=== PATIENT | female | born 1970 | race Caucasian/White ===

== ENCOUNTER 2017-05-13 20:52 | Inpatient (IN) | payer BC, MEDICAID ==
[~2017-05-13] VITALS: Ht 157.5 cm; Wt 50.0 kg
[2017-05-13 21:00] VITALS: BP 126/74; PULSE 130; RESP 24; TEMP 98.9; O2SAT 98
[2017-05-13] MEDS ORDERED: LORazepam 2 MG/ML VIAL ONE (21:09)
[2017-05-13] MEDS ORDERED: SODIUM CHLOR 0.9% 1000 ML INJ 1,000 ML IV ONE ×2 (21:15→22:15)
[2017-05-13] MEDS ORDERED: LORazepam 2 MG/ML VIAL IV PUSH ONE ×2 (21:15→22:15)
--- NOTE | 2017-05-13 21:25 | PD ---
HPI Chief Complaint: Altered mental status Time Seen by Provider: 21:05 Travel History International Travel<30 days: No Contact w/Intl Traveler<30days: No History of Present Illness HPI The patient is a reportedly 46 year old female who presents to the [facility] emergency department with a history of altered mentation that began earlier today. The patient was noted by the patient's parents at home to be acting erratically, thrashing around on the floor. The patient was placed under a Walton act prior to arrival as she was unable to consent to care and was considered to be a harm to herself. According to the ambulance services record the patient has a history of lupus, Lyme disease, posttraumatic stress disorder , chronic pain. The patient reportedly is also on fentanyl for pain, Klonopin, and Valium. The patient on arrival is agitated and is requiring restraints for her and the staff safety. The patient intermittently is cursing and showing her middle finger. When asked questions, the patient provides no answers to the questions and when asked her name she said again "you", and put up her middle finger to me. No additional history was able to be obtained from the patient due to her altered mentation. The patient is brought in and registered as a [place], however the patient at one point was able to state her name to the nursing staff. FORMERLY [facility], [facility] Past Medical History Narrative Medical The patient's past medical history is significant for systemic lupus erythematosus, history of Lyme disease, posttraumatic stress disorder, chronic pain. Past Surgical History Narrative Surgical The patient's past surgical history is unable to be obtained. Social History Narrative Social History The patient's social history at this time is unable to be obtained. Tobacco Use: No Allergies-Medications (Allergen,Severity, Reaction): Coded Allergies: No Known Allergies (Unverified , 05/13/17) Reported Meds & Prescriptions Reported Meds & Active Scripts Active Narrative Medication Fentanyl, Klonopin, Valium. Review of Systems ROS Limitations: Altered Mental Status, Refused Except as stated in HPI: all other systems reviewed are Neg Neurologic: Positive: Change in Mentation Physical Exam Narrative General: The patient is a well-developed well-nourished female, agitated on arrival, diaphoretic, moving all extremities with equal strength. Head and Neck exam: Head is normocephalic atraumatic. Eyes: The patient is uncooperative with extraocular motion testing, however her eyes are conjugate gaze and are darting around the room looking at the staff. The patient's pupils are 4 mm bilaterally and reactive to light. Nose: Midline septum with pink mucous membranes Mouth: Dentition unremarkable. Moist mucus membranes. Posterior oropharynx is not erythematous. No tonsillar hypertrophy. Uvula midline. Airway patent. Neck: No palpable lymphadenopathy. No nuchal rigidity. No thyromegaly. Cardiovascular: Sinus tachycardia in the 130 without murmurs, gallops, or rubs. No pulse deficit to the extremities on simultaneous auscultation and palpation of her radial artery. Lungs: Clear to auscultation bilaterally. No wheezes, rhonchi, or rales. Abdomen: Soft, without tenderness to palpation in all 4 quadrants of the abdomen. No guarding, rebound, or rigidity. Normal bowel sounds are audible. No tenderness on palpation of McBurney's point. Extremities: No clubbing, cyanosis, or edema. 2+ pulses in all 4 extremities. Back: No spinous process tenderness to palpation. No costovertebral angle tenderness to palpation. Neurologic Exam: Patient is uncooperative with formal neurologic testing, however she has no evidence of facial asymmetry and is moving all 4 extremities with 5/5 strength. The patient has intact sensation noted to palpation over all dermatomes Skin Exam: She has bruises in various stages of healing on her extremities. The patient is diaphoretic. The patient's skin is warm. Data Data Last Documented VS Vital Signs Date Time Temp Pulse Resp B/P (MAP) Pulse Ox O2 Delivery O2 Flow Rate FiO2 05/13/17 21:00 24 98 Room Air 05/13/17 21:00 130 05/13/17 21:00 98.9 126/74 (91) Orders Orders Lorazepam Inj (Ativan Inj) (05/13/17 21:09) Complete Blood Count With Diff (05/13/17 21:14) Comprehensive Metabolic Panel (05/13/17 21:14) Creatine Kinase (Cpk) (05/13/17 21:14) Ckmb (Isoenzyme) Profile (05/13/17 21:14) Troponin I (05/13/17 21:14) Prothrombin Time / Inr (Pt) (05/13/17 21:14) Act Partial Throm Time (Ptt) (05/13/17 21:14) Lipase (05/13/17 21:14) Urinalysis - C+S If Indicated (05/13/17 21:14) Magnesium (Mg) (05/13/17 21:14) Ammonia (05/13/17 21:14) Thyroid Stimulating Hormone (05/13/17 21:14) Chest, Single Ap (05/13/17 21:14) Ct Brain W/O Iv Contrast(Rout) (05/13/17 21:14) Iv Access Insert/Monitor (05/13/17 21:14) Ecg Monitoring (05/13/17 21:14) Oximetry (05/13/17 21:14) Urinary Catheter Insert/Apply (05/13/17 21:14) Ed Urine Pregnancytest Poc (05/13/17 21:14) Drug Screen, Random Urine (05/13/17 21:14) Alcohol (Ethanol) (05/13/17 21:14) Salicylates (Aspirin) (05/13/17 21:14) Tylenol (Acetaminophen) (05/13/17 21:14) Sodium Chlor 0.9% 1000 Ml Inj (Ns 1000 M (05/13/17 21:15) Lorazepam Inj (Ativan Inj) (05/13/17 21:15) Sodium Chlor 0.9% 1000 Ml Inj (Ns 1000 M (05/13/17 22:15) Lorazepam Inj (Ativan Inj) (05/13/17 22:15) Haloperidol Inj (Haldol Inj) (05/13/17 22:15) Diphenhydramine Inj (Benadryl Inj) (05/13/17 22:15) CKMB (05/13/17 21:15) CKMB% (05/13/17 21:15) Admit Order (Ed Use Only) (05/13/17 23:53) Sodium Chlorid 0.9% 500 Ml Inj (Ns 500 M (05/14/17 00:00) Lactulose Liq (Lactulose Liq) (05/14/17 00:00) Labs Laboratory Tests Test 05/13/17 21:15 White Blood Count 20.8 TH/MM3 Red Blood Count 3.69 MIL/MM3 Hemoglobin 11.7 GM/DL Hematocrit 35.5 % Mean Corpuscular Volume 96.0 FL Mean Corpuscular Hemoglobin 31.6 PG Mean Corpuscular Hemoglobin Concent 32.9 % Red Cell Distribution Width 13.0 % Platelet Count 267 TH/MM3 Mean Platelet Volume 10.8 FL Neutrophils (%) (Auto) 80.1 % Lymphocytes (%) (Auto) 11.2 % Monocytes (%) (Auto) 8.5 % Eosinophils (%) (Auto) 0.0 % Basophils (%) (Auto) 0.2 % Neutrophils # (Auto) 16.7 TH/MM3 Lymphocytes # (Auto) 2.3 TH/MM3 Monocytes # (Auto) 1.8 TH/MM3 Eosinophils # (Auto) 0.0 TH/MM3 Basophils # (Auto) 0.0 TH/MM3 CBC Comment DIFF FINAL Differential Comment Prothrombin Time 11.7 SEC Prothromb Time International Ratio 1.2 RATIO Activated Partial Thromboplast Time 22.1 SEC Urine Color YELLOW Urine Turbidity HAZY Urine pH 6.0 Urine Specific [place] 1.031 Urine Protein 30 mg/dL Urine Glucose (UA) NEG mg/dL Urine Ketones 80 mg/dL Urine Occult Blood NEG Urine Nitrite NEG Urine Bilirubin NEG Urine Urobilinogen 2.0 MG/DL Urine Leukocyte Esterase NEG Urine RBC 3 /hpf Urine WBC 2 /hpf Urine Squamous Epithelial Cells 2 /hpf Urine Bacteria FEW /hpf Urine Hyaline Casts 1 /lpf Urine Mucus FEW /lpf Microscopic Urinalysis Comment CULT NOT INDICATED Blood Urea Nitrogen 13 MG/DL Creatinine 1.12 MG/DL Random Glucose 85 MG/DL Total Protein 7.4 GM/DL Albumin 4.4 GM/DL Calcium Level 9.6 MG/DL Magnesium Level 1.6 MG/DL Alkaline Phosphatase 61 U/L Aspartate Amino Transf (AST/SGOT) 55 U/L Alanine Aminotransferase (ALT/SGPT) 35 U/L Total Bilirubin 0.6 MG/DL Sodium Level 144 MEQ/L Potassium Level 3.4 MEQ/L Chloride Level 108 MEQ/L Carbon Dioxide Level 20.0 MEQ/L Anion Gap 16 MEQ/L Estimat Glomerular Filtration Rate 42 ML/MIN Ammonia 125 MCMOL/L Total Creatine Kinase 1135 U/L Creatine Kinase MB 19.2 NG/ML Creatine Kinase MB % 1.7 % Troponin I 0.03 NG/ML Lipase 72 U/L Free Thyroxine 1.09 NG/DL Free Triiodothyronine (T3) pg/dL 2.47 PG/ML Thyroid Stimulating Hormone 3rd Gen 0.215 uIU/ML Salicylates Level 1.9 MG/DL Urine Opiates Screen NEG Acetaminophen Level LESS THAN 2.0 MCG/ML Urine Barbiturates Screen POS Urine Amphetamines Screen NEG Urine Benzodiazepines Screen POS Urine Cocaine Screen NEG Urine Cannabinoids Screen POS Ethyl Alcohol Level LESS THAN 3 MG/DL MDM Medical Decision Making Medical Screen Exam Complete: Yes Emergency Medical Condition: Yes Medical Record Reviewed: Yes Interpretation(s) Last Impressions Head CT 05/13/172113 Signed Impressions: Service Date/Time: Sunday, May 14, 2017 00:01 - CONCLUSION: 1. No acute intracranial abnormality. Deandre Markham MD Chest X-Ray 05/13/172113 Signed Impressions: Service Date/Time: Saturday, May 13, 2017 21:38 - CONCLUSION: No acute disease. Brad Ernandez MD Differential Diagnosis Sympathomimetic toxicity, versus withdrawal syndrome, versus intracranial abnormality, versus anticholinergic syndrome. Narrative Course During the course of the patient's emergency department visit, the patient's history, examination, and differential diagnosis were reviewed with the patient. The patient was placed on a night monitor with oximetry and frequent blood pressure monitoring. The patient had IV access obtained and blood work sent for analysis. The patient was placed in restraints for her and the staff safety. A chest x-ray has been ordered, CT scan of the brain has been ordered. The patient's Walton act was reviewed. The patient was initially provided normal saline 1 L IV fluid bolus, Ativan 2 mg IV. The patient became agitated again and required additional Ativan 1 mg IV , Haldol 5 mg IM, diphenhydramine 25 mg IV. The patient was started on a second liter of normal saline IV fluids. A Hendricks catheter was placed to gravity. The patient's laboratory studies were reviewed and remarkable for a white count of 20.8, hemoglobin 11.7, platelets 267 with 80.1 neutrophils, CMP is remarkable for a potassium of 3.4, chloride 108, CO2 20, anion gap 16, creatinine is 1.12, GFR 42, AST 55, ammonia level 125, CPK 1135 with a normal MB percent, troponin I 0.03, lipase 72, TSH 0.215, PT 11.7, PTT 22.1, urine drug screen is positive for habitual its, benzodiazepines, cannabinoids. Alcohol level less than 3, acetaminophen less than 2, salicylate 1.9. Urinalysis showed 80 ketones otherwise unremarkable. Radiology studies were reviewed and remarkable for a chest x-ray that showed no acute cardiopulmonary disease, CT scan of the brain showed no acute abnormality. The patient was given her initial dose of lactulose p.o. The patient's results were discussed with the patient, including the plan of care. I explained that further testing and/ or monitoring is indicated based on the patient's history, examination, and/ or laboratory findings. Therefore, I recommended admission for additional evaluation. The patient expressed understanding and was agreeable with this plan. The patient was admitted to the hospital in guarded condition and sent to a bed under the care of the [facility] service. Critical Care Narrative Aggregate critical care time was 36 minutes. Time to perform other separately billable procedures was not included in the critical care time. My time did not include minutes spent treating any other patients simultaneously or on activities that did not directly contribute to the patient's treatment. The services I provided to this patient were to treat and/or prevent clinically significant deterioration that could result in: Respiratory failure from sedation, versus progression of rhabdomyolysis from agitation I provided critical care services requiring my management, as noted below: Chart data review, documentation time, medication orders and management, vital sign assessments/reviewing monitor data, ordering and reviewing lab tests, ordering and interpreting/reviewing x-rays and diagnostic studies, care of the patient and discussion of the patient with the admitting physicians. Physician Communication Physician Communication The patient's case including history, pertinent physical examination findings, and laboratory studies were discussed with Dr. Castellanos. It was agreed that the patient would be admitted to the [facility] service. Diagnosis Primary Impression: Altered mental status Qualified Codes: R41.0 - Disorientation, unspecified Additional Impressions: Hepatic encephalopathy Hyperthyroidism Admitting Information Admitting Physician Requests: Admit Scripts [Lactulose Liq] 30 ML SYRP No Conflict Check 30 ML PO QID for elevated ammonia, #1 BOTTLE Prov: MedardoLuciusgueroKaelyncoral BROWN 05/14/17 Virginie Saleh MD May 13, 2017 21:25
[2017-05-13 21:42] LABS: AUTOMATED NEUTROPHIL # 16.7 TH/MM3 (1.8-7.7); BASOPHIL % 0.2 % (0.0-2.0); HEMATOCRIT 35.5 % (35.0-46.0); HEMOGLOBIN 11.7 GM/DL (11.6-15.3); LYMPH % 11.2 % (9.0-44.0); LYMPHOCYTE # 2.3 TH/MM3 (1.0-4.8); MEAN CORPUSCULAR HEMOGLOBIN 31.6 PG (27.0-34.0); MEAN CORPUSCULAR HGB CONC 32.9 % (32.0-36.0); MEAN PLATELET VOLUME 10.8 FL (7.0-11.0); MONO % 8.5 % (0.0-8.0); MONOCYTE # 1.8 TH/MM3 (0-0.9); NEUT % 80.1 % (16.0-70.0); PLATELET COUNT 267 TH/MM3 (150-450); RED BLOOD COUNT 3.69 MIL/MM3 (4.00-5.30); WHITE BLOOD COUNT 20.8 TH/MM3 (4.0-11.0)
[2017-05-13 21:52] LABS: INTERNATIONAL NORMALIZED RATIO 1.2 RATIO; PROTHROMBIN TIME - PATIENT 11.7 SEC (9.8-11.6)
[2017-05-13 21:59] LABS: ALBUMIN 4.4 GM/DL (3.4-5.0); AST (GOT) 55 U/L (15-37); BACTERIA, URINE FEW /hpf; BILIRUBIN, URINE NEG (NEG); BLOOD UREA NITROGEN 13 MG/DL (7-18); BLOOD, URINE NEG (NEG); CALCIUM 9.6 MG/DL (8.5-10.1); CHLORIDE 108 MEQ/L (98-107); CREATININE 1.12 MG/DL (0.50-1.00); GLOMERULAR FILTRATION RATE 42 ML/MIN (>89); GLUCOSE,RANDOM 85 MG/DL (74-106); GLUCOSE,URINE NEG (NEG); HYALINE CAST, URINE 1 /lpf (RARE); KETONE, URINE 80 mg/dL (NEG); MAGNESIUM 1.6 MG/DL (1.5-2.5); MUCUS URINE FEW /lpf (OCC); NITRITE,URINE NEG (NEG); SODIUM (NA) 144 MEQ/L (136-145); SQUAMOUS EPITHELIAL CELL URINE 2 /hpf (0-5); URINE COLOR YELLOW (YELLW/STRAW); URINE LEUKOCYTE ESTERASE NEG (NEG)
[2017-05-13 22:15] LABS: ACETAMINOPHEN LESS THAN 2.0 MCG/ML (10.0-30.0); ALKALINE PHOSPHATASE 61 U/L (45-117); ALT (GPT) 35 U/L (10-53); TOTAL BILIRUBIN ADULT 0.6 MG/DL (0.2-1.0); TOTAL PROTEIN 7.4 GM/DL (6.4-8.2); TROPONIN I 0.03 NG/ML (0.02-0.05)
[2017-05-13] MEDS ORDERED: HALOPERIDOL LACTATE 5 MG/ML AMP IM ONE (22:15)
[2017-05-13] MEDS ORDERED: diphenhydrAMINE HCL 50 MG/ML VIAL IV PUSH ONE (22:15)
--- NOTE | 2017-05-13 22:17 | RADRPT ---
EXAM DATE/TIME: 05/13/2017 21:38 [facility] COMPARISON: No previous studies available for comparison. INDICATIONS : Patient arrived altered mental status. MEDICAL HISTORY : None. SURGICAL HISTORY : None. ENCOUNTER: Initial ACUITY: 1 day PAIN SCORE: 0/10 LOCATION: upper chest FINDINGS: A single view of the chest demonstrates the lungs to be symmetrically aerated without evidence of mas s, infiltrate or effusion. The cardiomediastinal contours are unremarkable. Osseous structures are intact. CONCLUSION: No acute disease. Brad Ernandez MD on May 13, 2017 at 22:16 Board Certified Radiologist. This report was verified electronically.
[2017-05-14] MEDS ORDERED: LACTULOSE SYRUP 20 GM/30 ML CUP PO ONE
[2017-05-14] MEDS ORDERED: SODIUM CHLORID 0.9% 500 ML INJ 500 ML IV ONE
--- NOTE | 2017-05-14 00:27 | RADRPT ---
EXAM DATE/TIME: 05/14/2017 00:01 [facility] COMPARISON: No previous studies available for comparison. INDICATIONS : Altered mental status. RADIATION DOSE: 56.35 CTDIvol (mGy) MEDICAL HISTORY : Non-responsive. SURGICAL HISTORY : Non-responsive. ENCOUNTER: Initial ACUITY: 1 day PAIN SCALE: Non-responsive LOCATION: cranial TECHNIQUE: Multiple contiguous axial images were obtained of the head. Using automated exposure control and adj ustment of the mA and/or kV according to patient size, radiation dose was kept as low as reasonably a chievable to obtain optimal diagnostic quality images. DICOM format image data is available electro nically for review and comparison. FINDINGS: CEREBRUM: Mild diffuse cerebral volume loss. The ventricles are normal for age. No evidence of midline shift, mass lesion, hemorrhage or acute infarction. No extra-axial fluid collections are seen. POSTERIOR FOSSA: The cerebellum and brainstem are intact. The 4th ventricle is midline. The cerebellopontine angle i s unremarkable. EXTRACRANIAL: The visualized portion of the orbits is intact. SKULL: The calvaria is intact. No evidence of skull fracture. CONCLUSION: 1. No acute intracranial abnormality. Deandre Markham MD on May 14, 2017 at 0:25 Board Certified Radiologist. This report was verified electronically.
[2017-05-14] MEDS ORDERED: NALOXONE HCL 0.4 MG/ML AMP IV PUSH PRN (00:45)
[2017-05-14] MEDS ORDERED: MAGNESIUM HYDROXIDE SUSP 30 ML CUP PO PRN (00:45)
[2017-05-14] MEDS ORDERED: HALOPERIDOL LACTATE 5 MG/ML AMP IM PRN (00:45)
[2017-05-14] MEDS ORDERED: LORazepam 2 MG/ML VIAL IV PUSH PRN ×4 (00:45)
[2017-05-14] MEDS ORDERED: SENNOSIDES 8.6 MG TAB PO PRN (00:45)
[2017-05-14] MEDS ORDERED: LORazepam 1 MG TAB PO PRN (00:45)
[2017-05-14] MEDS ORDERED: BISACODYL 10 MG SUPP RECTAL PRN (00:45)
[2017-05-14] MEDS ORDERED: LACTULOSE SYRUP 20 GM/30 ML CUP PO PRN (00:45)
[2017-05-14] MEDS ORDERED: LORazepam 2 MG TAB PO PRN (00:45)
[2017-05-14] MEDS ORDERED: FLUMAZENIL 0.5 MG/5 ML VIAL IV PUSH PRN (00:45)
[2017-05-14] MEDS ORDERED: SODIUM CHLORIDE 0.9% FLUSH 10 ML FLUSH IV FLUSH PRN (00:45)
[2017-05-14] MEDS ORDERED: ONDANSETRON HCL 4 MG/2 ML VIAL IVP PRN (00:45)
[2017-05-14 01:00] VITALS: BP 114/71; PULSE 95; RESP 14; O2SAT 97
[2017-05-14] MEDS: SODIUM CHLOR 0.9% 1000 ML INJ 1,000 ML IV SCH ×2 (01:38→08:34)
[2017-05-14] MEDS ORDERED: POTASSIUM CHLORIDE 20 MEQ PWD PACKET PO ONE (02:00)
--- NOTE | 2017-05-14 02:01 | HHI.HP ---
[facility] Diagnosis Dehydration, Rhabdomyolysis, AMS, hepatic encephalopathy Diagnoses: Travel History International Travel<30 Days: No Contact w/Intl Traveler <30 Da: No Traveled to Known Affected Are: No History of Present Illness Female of unknown age brought to the emergency department for altered mental status. Per ED documentation, the patient was noted by her parents to be acting erratically and thrashing about on the floor. She was placed under a Walton act and brought to the emergency department for further evaluation. According to EMS the patient has a history of lupus, Lyme disease, PTSD and chronic pain. The patient is reportedly on fentanyl, Klonopin and Valium. In the emergency department, the patient was agitated and required sedation with Ativan and Haldol. During the time of our interview, the patient will open her eyes to voice however does not answer any questions. Does not follow commands. Review of Systems ROS Limitations: Clinical Condition Unable to obtain secondary clinical condition Past Family Social History Past Medical History Per EMS records: lupus, Lyme disease, PTSD and chronic pain Past Surgical History Unable to obtain Reported Medications Unable to obtain Allergies: Coded Allergies: No Known Allergies (Unverified , 05/13/17) Family History Unable to obtain Social History Unable to obtain Physical Exam Vital Signs Vital Signs Date Time Temp Pulse Resp B/P (MAP) Pulse Ox O2 Delivery O2 Flow Rate FiO2 05/13/17 21:00 24 98 Room Air 05/13/17 21:00 130 24 98 Room Air 05/13/17 21:00 98.9 130 24 126/74 (65) 98 Physical Exam GENERAL: female lying in bed SKIN: No rashes, ecchymoses or lesions. Cool and dry. HEAD: Atraumatic. Normocephalic. No temporal or scalp tenderness. EYES: Pupils pinpoint and sluggish but reactive. Extraocular motions intact. No scleral icterus. No injection or drainage. ENT: Nose without bleeding, purulent drainage or septal hematoma. Airway patent. NECK: Trachea midline. No JVD or lymphadenopathy. CARDIOVASCULAR: Regular rate and rhythm without murmurs, gallops, or rubs. RESPIRATORY: Clear to auscultation. Breath sounds equal bilaterally. No wheezes , rales, or rhonchi. GASTROINTESTINAL: Abdomen soft, nondistended. No hepato-splenomegaly, or palpable masses. MUSCULOSKELETAL: Extremities without clubbing, cyanosis, or edema. No joint tenderness, effusion, or edema noted. NEUROLOGICAL: Opens eyes to voice. Does not follow commands. Unable to assess strength or mental status. Laboratory Laboratory Tests Test 05/13/17 21:15 White Blood Count 20.8 Red Blood Count 3.69 Hemoglobin 11.7 Hematocrit 35.5 Mean Corpuscular Volume 96.0 Mean Corpuscular Hemoglobin 31.6 Mean Corpuscular Hemoglobin Concent 32.9 Red Cell Distribution Width 13.0 Platelet Count 267 Mean Platelet Volume 10.8 Neutrophils (%) (Auto) 80.1 Lymphocytes (%) (Auto) 11.2 Monocytes (%) (Auto) 8.5 Eosinophils (%) (Auto) 0.0 Basophils (%) (Auto) 0.2 Neutrophils # (Auto) 16.7 Lymphocytes # (Auto) 2.3 Monocytes # (Auto) 1.8 Eosinophils # (Auto) 0.0 Basophils # (Auto) 0.0 CBC Comment DIFF FINAL Differential Comment Prothrombin Time 11.7 Prothromb Time International Ratio 1.2 Activated Partial Thromboplast Time 22.1 Urine Color YELLOW Urine Turbidity HAZY Urine pH 6.0 Urine Specific [place] 1.031 Urine Protein 30 Urine Glucose (UA) NEG Urine Ketones 80 Urine Occult Blood NEG Urine Nitrite NEG Urine Bilirubin NEG Urine Urobilinogen 2.0 Urine Leukocyte Esterase NEG Urine RBC 3 Urine WBC 2 Urine Squamous Epithelial Cells 2 Urine Bacteria FEW Urine Hyaline Casts 1 Urine Mucus FEW Microscopic Urinalysis Comment CULT NOT INDICATED Blood Urea Nitrogen 13 Creatinine 1.12 Random Glucose 85 Total Protein 7.4 Albumin 4.4 Calcium Level 9.6 Magnesium Level 1.6 Alkaline Phosphatase 61 Aspartate Amino Transf (AST/SGOT) 55 Alanine Aminotransferase (ALT/SGPT) 35 Total Bilirubin 0.6 Sodium Level 144 Potassium Level 3.4 Chloride Level 108 Carbon Dioxide Level 20.0 Anion Gap 16 Estimat Glomerular Filtration Rate 42 Ammonia 125 Total Creatine Kinase 1135 Creatine Kinase MB 19.2 Creatine Kinase MB % 1.7 Troponin I 0.03 Lipase 72 Thyroid Stimulating Hormone 3rd Gen 0.215 Salicylates Level 1.9 Urine Opiates Screen NEG Acetaminophen Level LESS THAN 2.0 Urine Barbiturates Screen POS Urine Amphetamines Screen NEG Urine Benzodiazepines Screen POS Urine Cocaine Screen NEG Urine Cannabinoids Screen POS Ethyl Alcohol Level LESS THAN 3 Result Diagram: 05/13/17211405/13/172114 [place] [facility]: No/Low Risk (score <= 1) [facility] Risk [facility] Model Point Value = 1 Point Value = 2 Point Value = 3 Point Value = 5 Age 41-60 Minor surgery BMI > 25 kg/m2 Swollen legs Varicose veins or History of unexplained or recurrent spontaneous Oral contraceptives or hormone replacement Sepsis (< 1 month) Serious lung disease, including pneumonia (< 1 month) Abnormal pulmonary function Acute myocardial infarction Congestive heart failure (< 1 month) History of inflammatory bowel disease Medical patient at bed rest Age 61-74 Arthroscopic surgery Major open surgery (> 45 min) Laparoscopic surgery (> 45 min) Malignancy Confined to bed (> 72 hours) Immobilizing plaster cast Central venous access Age >= 75 History of VTE Family history of VTE Factor V Leiden Prothrombin [id number] Lupus anticoagulant Anticardiolipin antibodies Elevated serum homocysteine Heparin-induced thrombocytopenia Other congenital or acquired thrombophilia Stroke (< 1 month) Elective arthroplasty Hip, pelvis, or leg fracture Acute spinal cord injury (< 1 month) Prophylaxis Regimen Total Risk Factor Score Risk Level Prophylaxis Regimen 0-1 Low Early ambulation 2 Moderate Order ONE of the following: *Sequential Compression Device (SCD) *Heparin 5000 units SQ BID 3-4 Higher Order ONE of the following medications: *Heparin 5000 units SQ TID *Enoxaparin/Lovenox 40 mg SQ daily (WT < 150 kg, CrCl > 30 mL/min) *Enoxaparin/Lovenox 30 mg SQ daily (WT < 150 kg, CrCl > 10-29 mL/min) *Enoxaparin/Lovenox 30 mg SQ BID (WT < 150 kg, CrCl > 30 mL/min) AND/OR *Sequential Compression Device (SCD) 5 or more Highest Order ONE of the following medications: *Heparin 5000 units SQ TID (Preferred with Epidurals) *Enoxaparin/Lovenox 40 mg SQ daily (WT < 150 kg, CrCl > 30 mL/min) *Enoxaparin/Lovenox 30 mg SQ daily (WT < 150 kg, CrCl > 10-29 mL/min) *Enoxaparin/Lovenox 30 mg SQ BID (WT < 150 kg, CrCl > 30 mL/min) AND *Sequential Compression Device (SCD) Assessment and Plan Assessment and Plan Assessment/plan: 1. Rhabdomyolysis CK 1135 Aggressive IV fluid hydration Monitor renal function 2. Hyperammonemia Ammonia 125 Lactulose Trend 3. Substance abuse Urine tox screen significant for barbiturates, benzodiazepines, cannabinoids [facility] protocol for benzo withdrawal 4. Altered mental status/Walton act Psychiatry consulted, appreciate recommendations 5. Hypothyroidism TSH 0.215 Thyroid studies pending FEN Regular diet Electrolytes: Status post by mouth potassium, follow up BMP Ambulation once mental status improves NS at 150 cc/hr Physician Certification 2 Midnight Certification Type: Admission for Inpatient Services Order for Inpatient Services The services are ordered in accordance with Medicare regulations or non- Medicare payer requirements, as applicable. In the case of services not specified as inpatient-only, they are appropriately provided as inpatient services in accordance with the 2-midnight benchmark. Estimated LOS (days): 2 2 days is the estimated time the patient will need to remain in the hospital, assuming treatment plan goals are met and no additional complications. Post-Hospital Plan: Not yet determined Stella Castellanos MD May 14, 2017 02:01
[2017-05-14 03:00] VITALS: BP 121/74; PULSE 87; RESP 15; O2SAT 98
[2017-05-14 03:24] LABS: FREE T3 2.47 PG/ML (2.18-3.98); FREE T4 1.09 NG/DL (0.76-1.46)
[2017-05-14] MEDS: LACTULOSE SYRUP 20 GM/30 ML CUP PO SCH ×2 (08:32→14:34)
[2017-05-14] MEDS ORDERED: DOCUSATE SODIUM 50 MG/SENNA 8.6 MG TAB PO SCH (09:00)
[2017-05-14] MEDS ORDERED: SODIUM CHLORIDE 0.9% FLUSH 10 ML FLUSH IV FLUSH SCH (09:00)
[2017-05-14 09:11] VITALS: BP 102/58; PULSE 98; RESP 18; TEMP 98.7; O2SAT 98
--- NOTE | 2017-05-14 10:22 | HHI.PR ---
Subjective Remarks Follow-up visit fibromyalgia, chronic pain, psychotic episode possibly drug- induced, encephalopathy. Patient seen and examined today sitting in bed. Appears to be very restless. States that she was to go to the bathroom but not immediately. Patient relates that she has chronic pain issues and fibromyalgia with history of multiple falls. States that she lives in [place] prior to moving to her mother here in the area. States that she is being followed by pain management for medical marijuana and tapering her dose of fentanyl. Patient states that she sees Dr. Jenkins who is a pain management and also Dr. Huang her primary care provider. Denies chest pain, palpitations, headaches, dizziness. Denies fevers, chills, nausea, vomiting, diarrhea. Requesting Hendricks removal. Objective Vitals Vital Signs Date Time Temp Pulse Resp B/P (MAP) Pulse Ox O2 Delivery O2 Flow Rate FiO2 05/14/17 09:11 Room Air 05/14/17 09:11 98.7 98 18 102/58 (73) 98 05/14/17 06:16 05/14/17 03:00 87 15 121/74 (90) 98 Room Air 05/14/17 01:00 95 14 114/71 (85) 97 Room Air 05/13/17 21:00 24 98 Room Air 05/13/17 21:00 130 24 98 Room Air 05/13/17 21:00 98.9 130 24 126/74 (91) 98 Result Diagram: 05/13/17211405/13/172114 Imaging Last Impressions Head CT 05/13/172113 Signed Impressions: Service Date/Time: Sunday, May 14, 2017 00:01 - CONCLUSION: 1. No acute intracranial abnormality. Deandre Markham MD Chest X-Ray 05/13/172113 Signed Impressions: Service Date/Time: Saturday, May 13, 2017 21:38 - CONCLUSION: No acute disease. Brad Ernandez MD Objective Remarks GENERAL: This is a well-nourished, well-developed patient, in no apparent distress. SKIN: Warm and dry. Multiple erythema and bruising all throughout bilateral upper and lower extremity. HEENT: Normocephalic. Pupils equal round and reactive. Nose without bleeding. Airway patent. NECK: Trachea midline. CARDIOVASCULAR: Regular rate and rhythm without murmurs, gallops, or rubs. RESPIRATORY: Clear to auscultation. Breath sounds equal bilaterally. No wheezes , rales, or rhonchi. GASTROINTESTINAL: Abdomen soft, non-tender, nondistended. Bowel Sounds normoactive x4. MUSCULOSKELETAL: Extremities without clubbing, cyanosis, or edema. NEUROLOGICAL: Awake and alert. Very restless. No focal neuro deficit. Moves all extremities. Normal speech. A/P Problem List: (1) Encephalopathy acute ICD Code: G93.40 - Encephalopathy, unspecified (2) Fibromyalgia ICD Code: M79.7 - Fibromyalgia (3) Chronic pain disorder ICD Code: G89.4 - Chronic pain syndrome Assessment and Plan Patient is a 50 [id number] female who came into the hospital for altered mental status. Substance abuse Drug-induced psychosis Encephalopathy, acute - Ammonia level 125 - Lactulose 4 times a day - Psychiatry consulted for further evaluation and recommendation. Spoke with Dr. Lind will admit the patient with medical psychiatric for further evaluation. - Patient with chronic pain on multiple narcotic medication- fentanyl, Valium , Klonopin and also reports medical marijuana use. U tox positive barbiturates , benzos, cannabinoids - Appears to be restless during examination and interview. Monitor for benzo withdrawals. CIWA protocol - Patient states she is trying to wean off fentanyl by being on medical marijuana. Multiple falls with bruising noted. Chronic pain, fibromyalgia Multiple falls - Chronic pain management as above, followed by Dr. Huang and Dr. Jenkins - We'll place on CIWA - Physical therapy and occupational therapy treatment and evaluation Rhabdomyolysis - CK 1135 - Aggressive fluid hydration - Follow-up labs DVT prop SCDs Discharge patient to medical psychiatry Condition on discharge: Improved Regular Diet as tolerated Ad July activity as tolerated, OOB-chair with assist Rx written: Lactulose QID. CIWA protocol with Ativan Follow-up with [facility] in med psych Discharge Planning DC to med psych Lobo Neves May 14, 2017 10:22
[2017-05-14 10:42] VITALS: BP 99/65; PULSE 98; RESP 18; TEMP 98.6; O2SAT 98
[2017-05-14] MEDS ORDERED: Lactulose Liq PO (11:41)
[2017-05-14 11:45] LABS: AUTOMATED NEUTROPHIL # 7.2 TH/MM3 (1.8-7.7); BASOPHIL % 0.2 % (0.0-2.0); HEMATOCRIT 30.3 % (35.0-46.0); HEMOGLOBIN 10.1 GM/DL (11.6-15.3); LYMPH % 15.5 % (9.0-44.0); LYMPHOCYTE # 1.4 TH/MM3 (1.0-4.8); MEAN CORPUSCULAR HGB CONC 33.3 % (32.0-36.0); MEAN PLATELET VOLUME 10.7 FL (7.0-11.0); MONO % 5.9 % (0.0-8.0); MONOCYTE # 0.5 TH/MM3 (0-0.9); NEUT % 78.4 % (16.0-70.0); PLATELET COUNT 166 TH/MM3 (150-450); RED BLOOD COUNT 3.15 MIL/MM3 (4.00-5.30); RED CELL DISTRIBUTION WIDTH 13.3 % (11.6-17.2); WHITE BLOOD COUNT 9.2 TH/MM3 (4.0-11.0)
[2017-05-14 12:05] LABS: ALBUMIN 3.3 GM/DL (3.4-5.0); ALKALINE PHOSPHATASE 44 U/L (45-117); ALT (GPT) 35 U/L (10-53); AST (GOT) 80 U/L (15-37); BICARBONATE 16.3 MEQ/L (21.0-32.0); BLOOD UREA NITROGEN 7 MG/DL (7-18); CALCIUM 7.6 MG/DL (8.5-10.1); CHLORIDE 113 MEQ/L (98-107); CREATININE 0.47 MG/DL (0.50-1.00); GLOMERULAR FILTRATION RATE 114 ML/MIN (>89); GLUCOSE,RANDOM 68 MG/DL (74-106); SODIUM (NA) 143 MEQ/L (136-145); TOTAL BILIRUBIN ADULT 0.5 MG/DL (0.2-1.0); TOTAL PROTEIN 5.6 GM/DL (6.4-8.2)
--- NOTE | 2017-05-14 12:53 | PD.PSY.CON ---
Provisional Diagnosis Admission Date May 13, 2017 at 23:55 [place] I. Unspecified psychosis, chronic PTSD [place] II. Deferred [place] III. Fibromyalgia, lupus, Mark's disease, [place] IV. Multiple chronic medical illnesses [place] V. 35 History of Present Illness Service Psychiatry Consult Requested By Medical team Reason for Consult Psychotic behavior Primary Care Physician HPI The patient is a 46 year-old woman, domiciled with her parents in [place], divorce, no kids, with psychiatric history of PTSD, no previous psychiatric hospitalizations, no previous suicidal attempts, medical history of Lyme disease , fibromyalgias, lupus, Mark's disease, migraine, who was brought to the emergency department for altered mental status. Per ED documentation, the patient was noted by her parents to be acting erratically and thrashing about on the floor. She was placed under a [place] act and brought to the emergency department for further evaluation. According to EMS the patient has a history of lupus, Lyme disease, PTSD and chronic pain. The patient is reportedly on fentanyl, Fioricet, Klonopin and Valium. In the emergency department, the patient was agitated and required sedation with Ativan and Haldol. During the time of our interview, the patient will open her eyes to voice however does not answer any questions. Does not follow commands. Had to be medicated with Haldol 5 mg in order to calm her down. On psychiatric evaluation today the patient is found sleeping, but easily arousable. Patient has a very expansive and elevated affect, reports that she has a lot of energy and she feels very happy. Patient says that she was brought here to the hospital "because I had an argument with her mother"but the patient is unable to elaborate about the circumstances and the cause of this argument. The patient says that she has been walking her dog back and forward in multiple locations in the last week. " I have been watching my dog, my dog is my best friend". The patient is very talkative, at times pressured and has to be redirected multiple times throughout the interview. Patient reports to feels full of energy, she says that she wants to go home because she has several activities to finish. Patient reported that she takes all her medications as prescribed. She says that she takes overtime medications, which is unable to remember the names at this moment. She says that she takes Klonopin, Valium and Fioricet scribe by her neurologist for migraine "Iand neurological conditions"patient doesn't remember the dose. She reports the use of prescribed marijuana, denies the use of other drugs and alcohol. Patient denies suicidal and homicidal ideation, she denies visual and auditory hallucinations. The evaluation the patient becomes tangential and disorganized multiple occasions, but she can be easily redirectable. Collateral information from her mother, Racquel Oakes, , who clarifies that she had to call the 911 yesterday because her daughter was presenting at very initial erratic and disorganized behavior. She says that at the beginning she was just confused, but at the end she was yelling, talking to herself, repeating herself over and over and over and she was not even able to recognize her mother. She says that this is the first time that her daughter has this kind of behavior. She says that the patient doesn't have any previous psychiatric problem. She has a lot of medical problems, she takes her medications as prescribed. She confirms that the patient doesn't use illegal drugs, she uses marijuana prescribed by her PCP. She is unable to clarify if the patient is abusing opiates or benzodiazepines, days that the patient takes clonazepam, Valium, Fioricet as prescribed. Review of Systems Constitutional: DENIES: Diaphoretic episodes, Fatigue, Fever, Weight gain, Weight loss, Chills, Dizziness, Change in appetite, Night Sweats Endocrine: DENIES: Abnorml menstrual pattern, Heat/cold intolerance, Polydipsia , Polyuria, Polyphagia Eyes: DENIES: Blurred vision, Diplopia, Eye inflammation, Eye pain, Vision loss , Photosensitivity, Double Vision Ears, nose, mouth, throat: DENIES: Tinnitus, Hearing loss, Vertigo, Nasal discharge, Oral lesions, Throat pain, Hoarseness, Ear Pain, Running Nose, Epistaxis, Sinus Pain, Toothache, Odynophagia Respiratory: DENIES: Apneas, Cough, Snoring, Wheezing, Hemoptysis, Sputum production, Shortness of breath Cardiovascular: DENIES: Chest pain, Palpitations, Syncope, Dyspnea on Exertion , PND, Lower Extremity Edema, Orthopnea, Claudication Gastrointestinal: DENIES: Abdominal pain, Black stools, Bloody stools, Constipation, Diarrhea, Nausea, Vomiting, Difficulty Swallowing, Anorexia Genitourinary: DENIES: Abnormal vaginal bleeding, Dysmenorrhea, Dyspareunia, Sexual dysfunction, Urinary frequency, Urinary incontinence, Urgency, Hematuria , Dysuria, Nocturia, Vaginal discharge Musculoskeletal: DENIES: Joint pain, Muscle aches, Stiffness, Joint Swelling, Back pain, Neck pain Hematologic/lymphatic: DENIES: Bruising, Lymphadenopathy Immunologic/allergic: DENIES: Eczema, Urticaria Neurologic: DENIES: Abnormal gait, Headache, Localized weakness, Paresthesias, Seizures, Speech Problems, Tremor, Poor Balance Psychiatric: COMPLAINS OF: Agitation, Delusions Past Family Social History Coded Allergies: No Known Allergies (Unverified , 05/13/17) Current Medications Medications (Trade) Dose Ordered Sig/Kayla Route Start Time Stop Time Status Last Admin Sodium Chloride 1,000 ml @ 150 mls/hr Q6H40M IV 05/14/17 00:38 05/14/17 08:34 (NS Flush) 2 ml UNSCH PRN IV FLUSH 05/14/17 00:45 (NS Flush) 2 ml BID IV FLUSH 05/14/17 09:00 (Zofran Inj) 4 mg Q6H PRN IVP 05/14/17 00:45 (Narcan Inj) 0.4 mg UNSCH PRN IV PUSH 05/14/17 00:45 (Mabel-Colace) 1 tab BID PO 05/14/17 09:00 05/14/17 08:32 (Milk Of Magnesia Liq) 30 ml Q12H PRN PO 05/14/17 00:45 (Senokot) 17.2 mg Q12H PRN PO 05/14/17 00:45 (Dulcolax Supp) 10 mg DAILY PRN RECTAL 05/14/17 00:45 (Lactulose Liq) 30 ml DAILY PRN PO 05/14/17 00:45 (Lactulose Liq) 30 ml QID PO 05/14/17 09:00 05/14/17 08:32 (Romazicon Inj) 0.2 mg Q1M PRN IV PUSH 05/14/17 00:45 (Ativan) 1 mg Q4H PRN PO 05/14/17 00:45 (Ativan Inj) 1 mg Q4H PRN IV PUSH 05/14/17 00:45 (Ativan) 2 mg Q2H PRN PO 05/14/17 00:45 (Ativan Inj) 2 mg Q2H PRN IV PUSH 05/14/17 00:45 (Ativan Inj) 2 mg Q1H PRN IV PUSH 05/14/17 00:45 (Ativan Inj) 2 mg Q15M PRN IV PUSH 05/14/17 00:45 (Haldol Inj) 2 mg Q15M PRN IM 05/14/17 00:45 Family Psych History No family psychiatric history Social History Patient was born and raised in [place], she lives with her mother and her father in [place], she is unemployed, , no kids, supported by [facility] Patient's Strengths (min. 2) Family support Physical Exam Hyperactive, Agitated, but no tremors, no EPS Vital Signs Vital Signs Date Time Temp Pulse Resp B/P (MAP) Pulse Ox O2 Delivery O2 Flow Rate FiO2 05/14/17 10:42 98.6 98 18 99/65 (76) 98 05/14/17 09:11 Room Air Lab Results Test 05/13/17 21:15 05/14/17 11:11 White Blood Count 20.8 TH/MM3 9.2 TH/MM3 Red Blood Count 3.69 MIL/MM3 3.15 MIL/MM3 Hemoglobin 11.7 GM/DL 10.1 GM/DL Hematocrit 35.5 % 30.3 % Mean Corpuscular Volume 96.0 FL 96.0 FL Mean Corpuscular Hemoglobin 31.6 PG 32.0 PG Mean Corpuscular Hemoglobin Concent 32.9 % 33.3 % Red Cell Distribution Width 13.0 % 13.3 % Platelet Count 267 TH/MM3 166 TH/MM3 Mean Platelet Volume 10.8 FL 10.7 FL Neutrophils (%) (Auto) 80.1 % 78.4 % Lymphocytes (%) (Auto) 11.2 % 15.5 % Monocytes (%) (Auto) 8.5 % 5.9 % Eosinophils (%) (Auto) 0.0 % 0.0 % Basophils (%) (Auto) 0.2 % 0.2 % Neutrophils # (Auto) 16.7 TH/MM3 7.2 TH/MM3 Lymphocytes # (Auto) 2.3 TH/MM3 1.4 TH/MM3 Monocytes # (Auto) 1.8 TH/MM3 0.5 TH/MM3 Eosinophils # (Auto) 0.0 TH/MM3 0.0 TH/MM3 Basophils # (Auto) 0.0 TH/MM3 0.0 TH/MM3 CBC Comment DIFF FINAL DIFF FINAL Differential Comment Prothrombin Time 11.7 SEC Prothromb Time International Ratio 1.2 RATIO Activated Partial Thromboplast Time 22.1 SEC Urine Color YELLOW Urine Turbidity HAZY Urine pH 6.0 Urine Specific [place] 1.031 Urine Protein 30 mg/dL Urine Glucose (UA) NEG mg/dL Urine Ketones 80 mg/dL Urine Occult Blood NEG Urine Nitrite NEG Urine Bilirubin NEG Urine Urobilinogen 2.0 MG/DL Urine Leukocyte Esterase NEG Urine RBC 3 /hpf Urine WBC 2 /hpf Urine Squamous Epithelial Cells 2 /hpf Urine Bacteria FEW /hpf Urine Hyaline Casts 1 /lpf Urine Mucus FEW /lpf Microscopic Urinalysis Comment CULT NOT INDICATED Blood Urea Nitrogen 13 MG/DL 7 MG/DL Creatinine 1.12 MG/DL 0.47 MG/DL Random Glucose 85 MG/DL 68 MG/DL Total Protein 7.4 GM/DL 5.6 GM/DL Albumin 4.4 GM/DL 3.3 GM/DL Calcium Level 9.6 MG/DL 7.6 MG/DL Magnesium Level 1.6 MG/DL Alkaline Phosphatase 61 U/L 44 U/L Aspartate Amino Transf (AST/SGOT) 55 U/L 80 U/L Alanine Aminotransferase (ALT/SGPT) 35 U/L 35 U/L Total Bilirubin 0.6 MG/DL 0.5 MG/DL Sodium Level 144 MEQ/L 143 MEQ/L Potassium Level 3.4 MEQ/L 3.6 MEQ/L Chloride Level 108 MEQ/L 113 MEQ/L Carbon Dioxide Level 20.0 MEQ/L 16.3 MEQ/L Anion Gap 16 MEQ/L 14 MEQ/L Estimat Glomerular Filtration Rate 42 ML/MIN 114 ML/MIN Ammonia 125 MCMOL/L Total Creatine Kinase 1135 U/L Creatine Kinase MB 19.2 NG/ML Creatine Kinase MB % 1.7 % Troponin I 0.03 NG/ML Lipase 72 U/L Free Thyroxine 1.09 NG/DL Free Triiodothyronine (T3) pg/dL 2.47 PG/ML Thyroid Stimulating Hormone 3rd Gen 0.215 uIU/ML Salicylates Level 1.9 MG/DL Urine Opiates Screen NEG Acetaminophen Level LESS THAN 2.0 MCG/ML Urine Barbiturates Screen POS Urine Amphetamines Screen NEG Urine Benzodiazepines Screen POS Urine Cocaine Screen NEG Urine Cannabinoids Screen POS Ethyl Alcohol Level LESS THAN 3 MG/DL Mental Status Examination Appearance: Appropriate Consciousness: Alert Orientation: x4 Motor Activity: Normal gait Speech: Unremarkable Language: Adequate Fund of Knowledge: Adequate Attention and Concentration: Adequate Memory: Unremarkable Mood: Irritable, Manic Affect: Labile Thought Process & Associations: Disorganized Thought Content: Appropriate Hallucination Type: None Delusion Type: None Suicidal Ideation: No Suicidal Plan: No Suicidal Intention: No Homicidal Ideation: No Homicidal Plan: No Homicidal Intention: No Insight: Poor Judgment: Poor Assessment & Plan Problem List: (1) Unspecified psychosis ICD Codes: F29 - Unspecified psychosis not due to a substance or known physiological condition Assessment & Plan: On psychiatric evaluation today the patient presents very labile, tangential, with elevated mood and restless. Recitation with her mother , since yesterday the patient has been presenting and erratic, unusual, disorganized behavior. Patient doesn't have a previous psychiatric history other than PTSD diagnosed many years ago, she is not in psychotropics, she doesn 't have any previous psychiatric hospitalizations, no previous suicidal attempts , she does have multiple medical illnesses for which she has been taking multiple medications including Klonopin, diazepam, Fioricet and opiates. At the moment of this evaluation the patient seems to have an inter contact with the reality, she has an increased risk of danger to self due to the level of disorganization/manic-like behavior and she benefits of inpatient psychiatric admission for stabilization, safety and longitudinal observation. At this point is unclear to me the etiology of her current presentation, but medication induced psychosis, sedative/hypnotics withdrawal and also a primary mood disorder decompensation this to be carefully investigated. I will start the patient in a low dose of antipsychotic/mood stabilizer, olanzapine 2.5 mg twice a day. Patient can be transferred to the med psych unit once medically appropriate. Assessment & Plan Estimated LOS: Brodie Cohn MD May 14, 2017 12:53
[2017-05-14] MEDS ORDERED: NATU97.5 PO (12:59)
[2017-05-14] MEDS ORDERED: LACTCAP8 PO (12:59)
[2017-05-14] MEDS ORDERED: PROM25TA10 PO (12:59)
[2017-05-14] MEDS ORDERED: METR250 PO (12:59)
[2017-05-14] MEDS ORDERED: FENT1DIS36 T-DERMAL (13:16)
[2017-05-14] MEDS ORDERED: VALT1TAB PO (13:16)
[2017-05-14] MEDS ORDERED: BUTA1CAP PO (13:16)
[2017-05-14] MEDS ORDERED: OMEG100010 (13:16)
[2017-05-14] MEDS ORDERED: FENT50DI T-DERMAL (13:16)
[2017-05-14] MEDS ORDERED: NYST500000 PO (13:16)
[2017-05-14] MEDS ORDERED: BACT800T5 PO (13:16)
[2017-05-14] MEDS ORDERED: HUMI40KI SQ (13:16)
[2017-05-14] MEDS ORDERED: [UNRECOGNIZED DRUG - CODE] IM (13:16)
[2017-05-14] MEDS ORDERED: DOXY1CAP91 PO (13:16)
[2017-05-14] MEDS ORDERED: CLON1 PO (13:16)
[2017-05-14] MEDS ORDERED: PREGPOW (13:27)
[2017-05-14] MEDS ORDERED: PROG50IN PO (13:27)
[2017-05-14] MEDS ORDERED: CYAN1KIT2 IM (13:27)
[2017-05-14 14:57] VITALS: BP 120/78; PULSE 89; RESP 18; TEMP 98.1; O2SAT 100
== END 2017-05-14 15:38 | DRG 896 ==
LOC: EDBD → NEPE 20:52 → NEDA 23:55 → NEPFCDU 05-14 06:12
PROVIDERS: ADMIT Hospitalist; ATTEND Hospitalist
DX: F19.959 Other psychoactive substance use, unspecified with psychoactive substance-induced psychotic disorder, unspecified (principal); G93.40 Encephalopathy, unspecified; E72.20 Disorder of urea cycle metabolism, unspecified; M62.82 Rhabdomyolysis; E03.9 Hypothyroidism, unspecified; L93.0 Discoid lupus erythematosus; G89.4 Chronic pain syndrome; F43.10 Post-traumatic stress disorder, unspecified; M79.7 Fibromyalgia; Z78.1 Physical restraint status; Z91.81 History of falling; R29.6 Repeated falls; F12.90 Cannabis use, unspecified, uncomplicated
CPT/HCPCS: 51702; 70450; 71045; 80053; 80307; 81001; 82140; 82550; 82552; 83690; 83735; 84439; 84443; 84481; 84484; 84703; 85025; 85610; 85730; 96361; 96372; 96374; 96375; 96376; J1200; J1630; J2060; J7030; J7040

== ENCOUNTER 2017-05-14 14:38 | Inpatient (IN) | payer BC, MEDICAID ==
[~2017-05-14 14:38] MED LIST: BACT800T5 PO; BUTA1CAP PO; CLON1 PO; CYAN1KIT2 IM; DOXY1CAP91 PO; FENT1DIS36 T-DERMAL; FENT50DI T-DERMAL; HUMI40KI SQ; LACTCAP8 PO; Lactulose Liq PO; METR250 PO; NATU97.5 PO; NYST500000 PO; OMEG100010; PREGPOW; PROG50IN PO; PROM25TA10 PO; VALT1TAB PO; [UNRECOGNIZED DRUG - CODE] IM
[2017-05-14] MEDS ORDERED: LORazepam 0.5 MG TAB PO PRN (18:00)
[2017-05-14] MEDS ORDERED: LORazepam 2 MG/ML VIAL IM PRN ×2 (18:00)
[2017-05-14] MEDS ORDERED: ALUMINUM/MAGNESIUM/SIMETH 30 ML CUP PO PRN (18:00)
[2017-05-14] MEDS ORDERED: ADALIMUMAB SQ SCH (18:00)
[2017-05-14] MEDS ORDERED: PROMETHAZINE HCL 25 MG TAB PO PRN (18:00)
[2017-05-14] MEDS ORDERED: LORazepam 1 MG TAB PO PRN (18:00)
[2017-05-14] MEDS ORDERED: MAGNESIUM HYDROXIDE SUSP 30 ML CUP PO PRN (18:00)
[2017-05-14 18:09] VITALS: BP 119/84; PULSE 77; RESP 16; TEMP 98.3; O2SAT 100
[2017-05-14 18:11] VITALS: BP 119/84; PULSE 77; RESP 16; TEMP 98.3; O2SAT 100
[2017-05-14] MEDS ORDERED: OLANZapine IM 10 MG VIAL IM STA (18:38)
--- NOTE | 2017-05-14 18:41 | HHI.HP ---
Provisional Diagnosis Admission Date May 14, 2017 at 15:45 Certification of Person's Competence To Provide Express and Informed Consent I have personally examined Shelli Montgomery , a person being served at [facility] on, May 14, 2017 18:40. Express and informed consent means consent voluntarily given in writing, by a competent person, after sufficient explanation and disclosure of the subject matter involved to enable the person to make a knowing and willful decision without any element of force, fraud, deceit, duress, or other form of constraint or coercion. This person is 18 years of age or older, is not now known to be incompetent to consent to treatment with a guardian advocate, and does not have a health care surrogate or proxy currently making medical treatment decisions. I have found this person to be one of the following: [] Competent to provide express and informed consent, as defined above, for voluntary admission to this facility and is competent to provide express and informed consent for treatment. He/she has the consistent capacity to make well reasoned, willful, and knowing decisions concerning his or her medical or mental health treatment. The person fully and consistently understands the purpose of the admission for examination/placement and is fully capable of personally exercising all rights assured [place] [] Incompetent to provide express and informed consent to voluntary admission, and this is incompetent to provide express and informed consent to treatment. The person must be transferred to involuntary status and a petition for a guardian advocate filed with the Circuit Court. [x] Refusing to provide express and informed consent to voluntary admission but is competent to provide express and informed consent for treatment. The person must be discharged or transferred to involuntary status. Form shall be completed within 24 hours of a person's arrival at the receiving facility and filed in the clinical record of each person: 1. Admitted on a voluntary basis 2. Permitted to provide express and informed consent to his/her own treatment 3. Allowed to transfer from involuntary to voluntary status 4. Prior to permitting a person to consent to his or her own treatment after having been previously found incompetent to consent to treatment. History of Present Illness Capacity: Lacks Capacity HPI The patient is a 46 year-old woman, domiciled with her parents in [place], divorce, no kids, with psychiatric history of PTSD, no previous psychiatric hospitalizations, no previous suicidal attempts, medical history of Lyme disease , fibromyalgias, lupus, Mark's disease, migraine, who was brought to the emergency department for altered mental status. Per ED documentation, the patient was noted by her parents to be acting erratically and thrashing about on the floor. She was placed under a [place] act and brought to the emergency department for further evaluation. According to EMS the patient has a history of lupus, Lyme disease, PTSD and chronic pain. The patient is reportedly on fentanyl, Fioricet, Klonopin and Valium. In the emergency department, the patient was agitated and required sedation with Ativan and Haldol. During the time of our interview, the patient will open her eyes to voice however does not answer any questions. Does not follow commands. Had to be medicated with Haldol 5 mg in order to calm her down. On psychiatric evaluation today the patient is found sleeping, but easily arousable. Patient has a very expansive and elevated affect, reports that she has a lot of energy and she feels very happy. Patient says that she was brought here to the hospital "because I had an argument with her mother"but the patient is unable to elaborate about the circumstances and the cause of this argument. The patient says that she has been walking her dog back and forward in multiple locations in the last week. " I have been watching my dog, my dog is my best friend". The patient is very talkative, at times pressured and has to be redirected multiple times throughout the interview. Patient reports to feels full of energy, she says that she wants to go home because she has several activities to finish. Patient reported that she takes all her medications as prescribed. She says that she takes overtime medications, which is unable to remember the names at this moment. She says that she takes Klonopin, Valium and Fioricet scribe by her neurologist for migraine "Iand neurological conditions"patient doesn't remember the dose. She reports the use of prescribed marijuana, denies the use of other drugs and alcohol. Patient denies suicidal and homicidal ideation, she denies visual and auditory hallucinations. The evaluation the patient becomes tangential and disorganized multiple occasions, but she can be easily redirectable. Collateral information from her mother, Racquel Oakes, , who clarifies that she had to call the 911 yesterday because her daughter was presenting at very initial erratic and disorganized behavior. She says that at the beginning she was just confused, but at the end she was yelling, talking to herself, repeating herself over and over and over and she was not even able to recognize her mother. She says that this is the first time that her daughter has this kind of behavior. She says that the patient doesn't have any previous psychiatric problem. She has a lot of medical problems, she takes her medications as prescribed. She confirms that the patient doesn't use illegal drugs, she uses marijuana prescribed by her PCP. She is unable to clarify if the patient is abusing opiates or benzodiazepines, days that the patient takes clonazepam, Valium, Fioricet as prescribed. Past Family Social History Coded Allergies: No Known Allergies (Unverified , 05/13/17) Active Scripts Risperidone (Risperdal) 0.5 Mg Tab, 0.5 MG PO BID for health for 30 Days, #60 TAB Prov:Yung Kenney MD 05/17/17 Clonazepam (Klonopin) 0.5 Mg Tab, 0.5 MG PO Q8HR for health for 7 Days, #21 TAB 1 Refill Prov:Yung Kenney MD 05/17/17 Ibuprofen (Ibuprofen) 600 Mg Tab, 600 MG PO Q8HR for health for 7 Days, #21 TAB Prov:Yung Kenney MD 05/17/17 Reported Medications Pregnenolone Powder (Pregnenolone Powder) 1 Pow Pow, 40 MG DAILY 05/14/17 [place]-3 Fatty Acids ([place] 3 1000 mg) 300 Mg-1,000 Mg Cap 05/14/17 Nykxkekszg-Akptiuczugroe-Umsydtkx (Fioricet) 50-300-40 Mg Cap, 2 CAP PO TID Y for prn, CAP 0 Refills 05/14/17 Adalimumab 2-Pack Inj (Humira 2-Pack Inj) 40 Mg/0.8 Ml Syr, 40 MG SQ Q7D, #2 KIT 05/14/17 Sulfamethoxazole-Trimethoprim (Bactrim DS) 800-160 Mg Tab, 1 TAB PO BID for Infection, TAB 05/14/17 Lactobacillus Acidophilus (Probiotic) 10 Billion Cell Cap, 2 CAP PO DAILY for Nutritional Supplement, #180 CAP 0 Refills 05/14/17 Discontinued Reported Medications Progesterone (Progesterone) 50 Mg/Ml Vial, 100 MG PO HS 05/14/17 Cyanocobalamin Inj (B-12 Compliance Inj) 1,000 Mcg/Ml Kit, 1000 MCG IM Q30D, #1 KIT 05/14/17 Doxycycline (Monohydrate) (Doxycycline) 100 Mg Cap, 100 MG PO BID 05/14/17 Fentanyl Patch 72 HR (Fentanyl Patch 72 HR) 62.5 Mcg/Hr Patch, 62.5 MCG T- DERMAL Q72H for Pain Management, #10 PATCH 0 Refills Remove old patch when new one placed. 05/14/17 Fentanyl Patch 72 HR (Fentanyl Patch 72 HR) 50 Mcg/Hr Patch, 50 MCG T-DERMAL Q72H for Pain Management, PATCH 0 Refills Remove old patch when new one placed. 05/14/17 Clonazepam (Klonopin) 1 Mg Tab, 1 MG PO TID, #90 TAB 0 Refills 05/14/17 Ketorolac Inj (Ketorolac Inj) 30 Mg/Ml Inj, 30 MG IM PRN, #1 VIAL 05/14/17 Valacyclovir (Valtrex) 1,000 Mg Tab, 1000 MG PO TID for Mgmt Viral Infection, TAB 0 Refills 05/14/17 Nystatin (Nystatin) 500,000 Unit Tab, 758838 UNITS PO BID, TAB 0 Refills 05/14/17 Promethazine (Phenergan) 25 Mg Tablet, 25 MG PO TID Y for prn, TAB 0 Refills 05/14/17 Thyroid (Nature-Throid) 97.5 Mg Tab, 97.5 MG PO DAILY for Thyroid Supplement, # 30 TAB 0 Refills 05/14/17 Metronidazole (Flagyl) 250 Mg Tab, 250 MG PO QID for Infection for 7 Days, TAB 0 Refills 05/14/17 Discontinued Scripts [Lactulose Liq] 30 ML SYRP No Conflict Check, 30 ML PO QID for elevated ammonia , #1 BOTTLE Prov:Lobo Neves 05/14/17 Current Medications Medications (Trade) Dose Ordered Sig/Kayla Route Start Time Stop Time Status Last Admin (Phenergan) 25 mg TID PRN PO 05/14/17 18:00 (Bactrim Ds 800-160 Mg) 1 tab BID PO 05/14/17 21:00 Patient Own Medication PT OWN MED: (Adalimu... Q7D SQ 05/14/17 18:00 Future Hold Patient Own Medication PT OWN MED:(Doxycycline (Monohydra... BID PO 05/14/17 21:00 Future Hold Patient Own Medication PT OWN MED: Thyroid (Nature-Thro... DAILY PO 05/15/17 09:00 Future Hold (Ativan) 1 mg Q6H PRN PO 05/14/17 18:00 (Ativan Inj) 1 mg Q6H PRN IM 05/14/17 18:00 (Ativan) 0.5 mg Q12H PRN PO 05/14/17 18:00 (Ativan Inj) 0.5 mg Q12H PRN IM 05/14/17 18:00 (Tylenol) 650 mg Q4H PRN PO 05/14/17 18:00 (Milk Of Magnesia Liq) 30 ml DAILY PRN PO 05/14/17 18:00 (Mag-Al Plus Susp Liq) 30 ml Q6H PRN PO 05/14/17 18:00 (Habitrol 21 Mg Patch.24 Hr) 1 patch DAILY T-DERMAL 05/15/17 09:00 (risperDAL) 0.5 mg BID PO 05/14/17 21:00 (KlonoPIN) 0.5 mg Q8HR PO 05/14/17 22:00 Miscellaneous Information 1 DAILY T-DERMAL 05/15/17 09:00 (ZyPREXA INJ) 10 mg STAT STAT IM 05/14/17 18:38 05/14/17 18:39 UNV Physical Exam Vital Signs Vital Signs Date Time Temp Pulse Resp B/P (MAP) Pulse Ox O2 Delivery O2 Flow Rate FiO2 05/14/17 18:11 98.3 77 16 119/84 (96) 100 Mental Status Examination Appearance: Appropriate Consciousness: Alert Orientation: x4 Motor Activity: Other (hyperactive) Speech: Rapid Language: Adequate Fund of Knowledge: Adequate Attention and Concentration: Inadequate Memory: Unremarkable Mood: Irritable, Manic, Other Affect: Irritable Thought Process & Associations: Disorganized Thought Content: Preoccupations, Delusional Hallucination Type: None Delusion Type: Paranoid Suicidal Ideation: No Suicidal Plan: No Suicidal Intention: No Homicidal Ideation: No Homicidal Plan: No Homicidal Intention: No Insight: Poor Judgment: Poor Assessment & Plan Problem List: (1) Unspecified psychosis ICD Codes: F29 - Unspecified psychosis not due to a substance or known physiological condition Assessment & Plan: On psychiatric evaluation today the patient presents very labile, tangential, with elevated mood and restless. Recitation with her mother , since yesterday the patient has been presenting and erratic, unusual, disorganized behavior. Patient doesn't have a previous psychiatric history other than PTSD diagnosed many years ago, she is not in psychotropics, she doesn 't have any previous psychiatric hospitalizations, no previous suicidal attempts , she does have multiple medical illnesses for which she has been taking multiple medications including Klonopin, diazepam, Fioricet and opiates. At the moment of this evaluation the patient seems to have an inter contact with the reality, she has an increased risk of danger to self due to the level of disorganization/manic-like behavior and she benefits of inpatient psychiatric admission for stabilization, safety and longitudinal observation. At this point is unclear to me the etiology of her current presentation, but medication induced psychosis, sedative/hypnotics withdrawal and also a primary mood disorder decompensation this to be carefully investigated. I will start the patient in a low dose of antipsychotic/mood stabilizer, Risperdal 0,5 bid. Consult psychiatry for second opinion, consult medicine to follow up medical conditions. Assessment & Plan Estimated LOS: Brodie Cohn MD May 14, 2017 18:41
[2017-05-14] MEDS: SULFAMETHOXAZOLE-TRIMETHOPRIM DS 800-160 MG TAB PO SCH (20:41)
[2017-05-14] MEDS: clonazePAM 0.5 MG TAB PO SCH (20:43)
[2017-05-14] MEDS: risperiDONE 0.5 MG TAB PO SCH (20:43)
[2017-05-14] MEDS ORDERED: DOXYCYCLINE 100 MG PO SCH (21:00)
[2017-05-15] MEDS: ACETAMINOPHEN 325 MG TAB PO PRN ×2 (04:38→16:12)
[2017-05-15 04:49] VITALS: BP 129/65; PULSE 98; RESP 16; TEMP 98; O2SAT 100
[2017-05-15] MEDS: clonazePAM 0.5 MG TAB PO SCH ×3 (05:46→21:39)
[2017-05-15] MEDS ORDERED: THYROID 97.5 MG PO SCH (09:00)
[2017-05-15] MEDS: NICOTINE 21 MG/24 HR PATCH T-DERMAL SCH (10:05)
[2017-05-15] MEDS: risperiDONE 0.5 MG TAB PO SCH ×3 (10:06→21:39)
[2017-05-15] MEDS: SULFAMETHOXAZOLE-TRIMETHOPRIM DS 800-160 MG TAB PO SCH ×2 (10:06→21:39)
[2017-05-15] MEDS: IBUPROFEN 600 MG TAB PO SCH ×3 (10:06→21:39)
[2017-05-15] MEDS: REMOVE OLD PATCH T-DERMAL SCH (10:07)
[2017-05-15 10:26] LABS: BICARBONATE 21.4 MEQ/L (21.0-32.0); BLOOD UREA NITROGEN 3 MG/DL (7-18); CALCIUM 8.4 MG/DL (8.5-10.1); CHLORIDE 112 MEQ/L (98-107); CHOLESTEROL 180 MG/DL (120-200); CREATININE 0.52 MG/DL (0.50-1.00); GLOMERULAR FILTRATION RATE 102 ML/MIN (>89); GLUCOSE,RANDOM 96 MG/DL (74-106); HDL CHOLESTEROL 69.1 MG/DL (40.0-60.0); LDL CHOLESTEROL 95 MG/DL (0-99); SODIUM (NA) 143 MEQ/L (136-145); TRIGLYCERIDES 80 MG/DL (42-150)
--- NOTE | 2017-05-15 10:34 | RADRPT ---
EXAM DATE/TIME: 05/15/2017 10:13 [place] COMPARISON: No previous studies available for comparison. INDICATIONS : Right foot pain and bruising after fall. MEDICAL HISTORY : None. SURGICAL HISTORY : None. ENCOUNTER: Initial ACUITY: 2 days PAIN SCORE: 10/10 LOCATION: Right dorsal foot. FINDINGS: 2 views of the right foot demonstrate no definite fracture or dislocation. Mineralization is normal. There is an oblique lucency through the mid aspect of the fourth digit proximal phalanx. However, no extension to the cortex is seen. Lisfranc joint is intact. No soft tissue abnormality or radiopaque f oreign body is identified. CONCLUSION: No definite fracture is identified. As described above, there is a subtle oblique lucency in the four th digit proximal phalanx. No clear extension to the cortex is seen suggesting against an acute fract ure but suggest correlating for pain in this location. Den Ren MD on May 15, 2017 at 10:31 Board Certified Radiologist. This report was verified electronically.
[2017-05-15 11:14] LABS: HEMOGLOBIN A1C 4.8 % (4.3-6.0)
--- NOTE | 2017-05-15 13:03 | PD.PSY.CON ---
Provisional Diagnosis Admission Date May 14, 2017 at 15:45 [place] I. Unspecified psychosis History of Present Illness Service Psychiatry Consult Requested By Dr. Petit Reason for Consult Second opinion Primary Care Physician No Primary Care Physician HPI The patient is a 46 year-old woman, domiciled with her parents in [place], divorce, no kids, with psychiatric history of PTSD, no previous psychiatric hospitalizations, no previous suicidal attempts, medical history of Lyme disease , fibromyalgias, lupus, Mark's disease, migraine, who was brought to the emergency department for altered mental status. Per ED documentation, the patient was noted by her parents to be acting erratically and thrashing about on the floor. She was placed under a [place] act and brought to the emergency department for further evaluation. According to EMS the patient has a history of lupus, Lyme disease, PTSD and chronic pain. The patient is reportedly on fentanyl, Fioricet, Klonopin and Valium. In the emergency department, the patient was agitated and required sedation with Ativan and Haldol. During the time of our interview, the patient will open her eyes to voice however does not answer any questions. Does not follow commands. Had to be medicated with Haldol 5 mg in order to calm her down. On psychiatric evaluation today the patient is found sleeping, but easily arousable. Patient has a very expansive and elevated affect, reports that she has a lot of energy and she feels very happy. Patient says that she was brought here to the hospital "because I had an argument with her mother"but the patient is unable to elaborate about the circumstances and the cause of this argument. The patient says that she has been walking her dog back and forward in multiple locations in the last week. " I have been watching my dog, my dog is my best friend". The patient is very talkative, at times pressured and has to be redirected multiple times throughout the interview. Patient reports to feels full of energy, she says that she wants to go home because she has several activities to finish. Patient reported that she takes all her medications as prescribed. She says that she takes overtime medications, which is unable to remember the names at this moment. She says that she takes Klonopin, Valium and Fioricet scribe by her neurologist for migraine "Iand neurological conditions"patient doesn't remember the dose. She reports the use of prescribed marijuana, denies the use of other drugs and alcohol. Patient denies suicidal and homicidal ideation, she denies visual and auditory hallucinations. The evaluation the patient becomes tangential and disorganized multiple occasions, but she can be easily redirectable. Collateral information from her mother, Racquel Oakes, , who clarifies that she had to call the 911 yesterday because her daughter was presenting at very initial erratic and disorganized behavior. She says that at the beginning she was just confused, but at the end she was yelling, talking to herself, repeating herself over and over and over and she was not even able to recognize her mother. She says that this is the first time that her daughter has this kind of behavior. She says that the patient doesn't have any previous psychiatric problem. She has a lot of medical problems, she takes her medications as prescribed. She confirms that the patient doesn't use illegal drugs, she uses marijuana prescribed by her PCP. She is unable to clarify if the patient is abusing opiates or benzodiazepines, days that the patient takes clonazepam, Valium, Fioricet as prescribed. 05/15/17 -second opinion Patient is a 46-year-old woman, , domiciled with parents, no children, unemployed on SSD, with a past psychiatric history of PTSD, no previous psychiatric admissions, no previous suicide attempts or self-injurious behavior , with a past medical history significant for Lyme's disease, lupus, Mark, fibromyalgia, migraines, TMJ was brought in under [place] act for also mental status, erratic behavior, talking to self and disorganized behavior which patient was admitted to the inpatient psychiatry for further evaluation and management. Patient seen today for second opinion. Patient was found lying in hospital bed to be somewhat disorganized during interview with some perseveration on her dog which did not make much sense but was able to state that she had been eating less, drinking less, and attempting to titrate herself off her medications. Patient states that she had began falling but also mentions that she has had episodes of falling in the past but primarily " worried about everyone and I caring for myself is new". Which have been ongoing for 1 week. Patient states that she had been having poor sleep for the past couple of days and that her mother called 911 after she had collapsed and brought her to the hospital. Patient states that she is feeling "much better" denies any perceptual disturbances or delusions at this time. Denies family psychiatric history, previous psychiatric diagnoses of PTSD, no previous admissions, suicide attempt or self-injurious behavior, patient does not have any outpatient mental health provider. Patient reports preadmitted previous medication trials with Cymbalta. Patient has substance use history of medical marijuana provided to her by her primary care doctor. Patient also reports having access to firearms at home. Past Family Social History Coded Allergies: No Known Allergies (Unverified , 05/13/17) Active Scripts [Lactulose Liq] 30 ML SYRP No Conflict Check, 30 ML PO QID for elevated ammonia , #1 BOTTLE Prov:PascaledaisyIsidroSantinoKaelyncoral BROWN 05/14/17 Reported Medications Pregnenolone Powder (Pregnenolone Powder) 1 Pow Pow, 40 MG DAILY 05/14/17 Progesterone (Progesterone) 50 Mg/Ml Vial, 100 MG PO HS 05/14/17 Cyanocobalamin Inj (B-12 Compliance Inj) 1,000 Mcg/Ml Kit, 1000 MCG IM Q30D, #1 KIT 05/14/17 Doxycycline (Monohydrate) (Doxycycline) 100 Mg Cap, 100 MG PO BID 05/14/17 [place]-3 Fatty Acids ([place] 3 1000 mg) 300 Mg-1,000 Mg Cap 05/14/17 Fentanyl Patch 72 HR (Fentanyl Patch 72 HR) 62.5 Mcg/Hr Patch, 62.5 MCG T- DERMAL Q72H for Pain Management, #10 PATCH 0 Refills Remove old patch when new one placed. 05/14/17 Fentanyl Patch 72 HR (Fentanyl Patch 72 HR) 50 Mcg/Hr Patch, 50 MCG T-DERMAL Q72H for Pain Management, PATCH 0 Refills Remove old patch when new one placed. 05/14/17 Auuycmrxhn-Zysssuwncphzj-Euggpgcn (Fioricet) 50-300-40 Mg Cap, 2 CAP PO TID Y for prn, CAP 0 Refills 05/14/17 Clonazepam (Klonopin) 1 Mg Tab, 1 MG PO TID, #90 TAB 0 Refills 05/14/17 Ketorolac Inj (Ketorolac Inj) 30 Mg/Ml Inj, 30 MG IM PRN, #1 VIAL 05/14/17 Adalimumab 2-Pack Inj (Humira 2-Pack Inj) 40 Mg/0.8 Ml Syr, 40 MG SQ Q7D, #2 KIT 05/14/17 Valacyclovir (Valtrex) 1,000 Mg Tab, 1000 MG PO TID for Mgmt Viral Infection, TAB 0 Refills 05/14/17 Sulfamethoxazole-Trimethoprim (Bactrim DS) 800-160 Mg Tab, 1 TAB PO BID for Infection, TAB 05/14/17 Nystatin (Nystatin) 500,000 Unit Tab, 071259 UNITS PO BID, TAB 0 Refills 05/14/17 Promethazine (Phenergan) 25 Mg Tablet, 25 MG PO TID Y for prn, TAB 0 Refills 05/14/17 Thyroid (Nature-Throid) 97.5 Mg Tab, 97.5 MG PO DAILY for Thyroid Supplement, # 30 TAB 0 Refills 05/14/17 Lactobacillus Acidophilus (Probiotic) 10 Billion Cell Cap, 2 CAP PO DAILY for Nutritional Supplement, #180 CAP 0 Refills 05/14/17 Metronidazole (Flagyl) 250 Mg Tab, 250 MG PO QID for Infection for 7 Days, TAB 0 Refills 05/14/17 Current Medications Medications (Trade) Dose Ordered Sig/Kayla Route Start Time Stop Time Status Last Admin (Phenergan) 25 mg TID PRN PO 05/14/17 18:00 (Bactrim Ds 800-160 Mg) 1 tab BID PO 05/14/17 21:00 05/15/17 10:06 Patient Own Medication PT OWN MED: (Adalimu... Q7D SQ 05/14/17 18:00 Future Hold Patient Own Medication PT OWN MED:(Doxycycline (Monohydra... BID PO 05/14/17 21:00 Future Hold Patient Own Medication PT OWN MED: Thyroid (Nature-Thro... DAILY PO 05/15/17 09:00 Future Hold (Ativan) 1 mg Q6H PRN PO 05/14/17 18:00 (Ativan Inj) 1 mg Q6H PRN IM 05/14/17 18:00 (Ativan) 0.5 mg Q12H PRN PO 05/14/17 18:00 (Ativan Inj) 0.5 mg Q12H PRN IM 05/14/17 18:00 (Tylenol) 650 mg Q4H PRN PO 05/14/17 18:00 05/15/17 04:38 (Milk Of Magnesia Liq) 30 ml DAILY PRN PO 05/14/17 18:00 (Mag-Al Plus Susp Liq) 30 ml Q6H PRN PO 05/14/17 18:00 (Habitrol 21 Mg Patch.24 Hr) 1 patch DAILY T-DERMAL 05/15/17 09:00 (risperDAL) 0.5 mg BID PO 05/14/17 21:00 05/15/17 12:28 (KlonoPIN) 0.5 mg Q8HR PO 05/14/17 22:00 Miscellaneous Information 1 DAILY T-DERMAL 05/15/17 09:00 (Motrin) 600 mg Q8HR PO 05/15/17 09:45 05/15/17 10:06 Physical Exam Vital Signs Vital Signs Date Time Temp Pulse Resp B/P (MAP) Pulse Ox O2 Delivery O2 Flow Rate FiO2 05/15/17 04:49 98.0 98 16 129/65 (86) 100 I/O 05/15/17 05/15/17 05/16/17 08:00 16:00 00:00 Intake Total 600 ml 240 ml Balance 600 ml 240 ml Lab Results Test 05/15/17 09:36 Blood Urea Nitrogen 3 MG/DL Creatinine 0.52 MG/DL Random Glucose 96 MG/DL Calcium Level 8.4 MG/DL Sodium Level 143 MEQ/L Potassium Level 3.3 MEQ/L Chloride Level 112 MEQ/L Carbon Dioxide Level 21.4 MEQ/L Anion Gap 10 MEQ/L Estimat Glomerular Filtration Rate 102 ML/MIN Hemoglobin A1c 4.8 % Triglycerides Level 80 MG/DL Cholesterol Level 180 MG/DL LDL Cholesterol 95 MG/DL HDL Cholesterol 69.1 MG/DL Cholesterol/HDL Ratio 2.60 RATIO Mental Status Examination Appearance: Appropriate Consciousness: Alert Orientation: x4 Motor Activity: Other (hyperactive) Speech: Rapid Language: Adequate Fund of Knowledge: Adequate Attention and Concentration: Inadequate Memory: Unremarkable Mood: Irritable, Other Affect: Irritable Thought Process & Associations: Disorganized Thought Content: Preoccupations, Delusional Hallucination Type: None Delusion Type: Paranoid Suicidal Ideation: No Suicidal Plan: No Suicidal Intention: No Homicidal Ideation: No Homicidal Plan: No Homicidal Intention: No Insight: Poor Judgment: Poor Assessment & Plan Problem List: (1) Unspecified psychosis ICD Codes: F29 - Unspecified psychosis not due to a substance or known physiological condition Assessment & Plan I have seen and examined this patient, reviewed the documentation, discussed personally with Dr. Petit, and I agree and concur with his assessment and plan. Consult appreciated. Patient is a 46-year-old woman with no formal past psychiatric history was brought into [facility] for altered mental status, erratic behavior, disorganization, and noted talking to himself in the context of self-care deficits. We will start patient on risperidone 0.5 mg p.o. twice daily for psychosis, continue rest of medications for chronic medical issues. Patient to continue recognitions for prior medical team. Continue to monitor mood and behavior. Collateral information pending from patient's parents. Social work intervention for psychosocial assessment. Discharge planning in progress. Discharge Planning Patient to return back to her residence when psychiatrically stable. Yung Kenney MD May 15, 2017 13:03
--- NOTE | 2017-05-15 13:53 | PD.CONS ---
HPI Service [facility] Consult Requested By Reason for Consult Medical management, autoimmune conditions, h/o narcotics Primary Care Physician No Primary Care Physician Diagnoses: History of Present Illness Patient states her true name is Gladys, and she denies any psychiatric issues. Our team was consulted for medical management of autoimmune conditions including lupus Lyme disease and chronic headaches. She previously took narcotics for pain related to these conditions, but now states that she has weaned off of narcotics and is exclusively using medical marijuana. Her chief complaint today is jaw pain, she denies trauma, she states her jaw pain is from TMJ. Review of Systems Constitutional: DENIES: Fatigue, Fever, Weight gain, Weight loss, Chills Eyes: DENIES: Blurred vision, Diplopia, Eye pain, Vision loss, Photosensitivity , Double Vision Ears, nose, mouth, throat: DENIES: Hearing loss, Vertigo, Oral lesions, Throat pain, Hoarseness, Ear Pain, Toothache Respiratory: DENIES: Apneas, Cough, Snoring, Wheezing, Hemoptysis, Sputum production Cardiovascular: DENIES: Chest pain, Palpitations, Syncope Gastrointestinal: DENIES: Abdominal pain, Black stools, Bloody stools, Constipation, Diarrhea, Nausea, Vomiting Genitourinary: DENIES: Abnormal vaginal bleeding, Urinary frequency Integumentary: DENIES: Abnormal pigmentation, Pruritus, Rash, Nail changes Neurologic: COMPLAINS OF: Headache, DENIES: Abnormal gait, Localized weakness, Paresthesias, Seizures, Tremor Psychiatric: DENIES: Confusion Past Family Social History Allergies: Coded Allergies: No Known Allergies (Unverified , 05/13/17) Past Medical History TMJ 2002 Lupus Fibromyalgia Lyme disease Chronic headaches Past Surgical History Left knee surgery Family History Type 2 diabetes Hypertension Social History Denies cigarettes or alcohol use Physical Exam Vital Signs Vital Signs Date Time Temp Pulse Resp B/P (MAP) Pulse Ox O2 Delivery O2 Flow Rate FiO2 05/15/17 04:49 98.0 98 16 129/65 (86) 100 05/14/17 18:11 98.3 77 16 119/84 (96) 100 05/14/17 18:09 98.3 77 16 119/84 (96) 100 Physical Exam GENERAL: This is a well-nourished, well-developed patient, in no apparent distress. SKIN: Abrasion on bridge of nose HEAD: Atraumatic. Normocephalic. No temporal or scalp tenderness. EYES: Pupils equal round and reactive. Extraocular motions intact. No scleral icterus. No injection or drainage. ENT: Nose without bleeding, purulent drainage or septal hematoma. Temporomandibular joints nontender nondisplaced NECK: Trachea midline. No JVD or lymphadenopathy. Supple, nontender, no meningeal signs. CARDIOVASCULAR: Regular rate and rhythm without murmurs, gallops, or rubs. RESPIRATORY: Clear to auscultation. Breath sounds equal bilaterally. No wheezes , rales, or rhonchi. GASTROINTESTINAL: Abdomen soft, non-tender, nondistended. No hepato-splenomegaly , or palpable masses. No guarding. MUSCULOSKELETAL: Extremities without clubbing, cyanosis, or edema. No joint tenderness, effusion, or edema noted. No calf tenderness. Negative Homans sign bilaterally. NEUROLOGICAL: Awake and alert. Cranial nerves II through XII intact. Motor and sensory grossly within normal limits. Five out of 5 muscle strength in all muscle groups. Laboratory Laboratory Tests Test 05/15/17 09:36 Blood Urea Nitrogen 3 Creatinine 0.52 Random Glucose 96 Calcium Level 8.4 Sodium Level 143 Potassium Level 3.3 Chloride Level 112 Carbon Dioxide Level 21.4 Anion Gap 10 Estimat Glomerular Filtration Rate 102 Hemoglobin A1c 4.8 Triglycerides Level 80 Cholesterol Level 180 LDL Cholesterol 95 HDL Cholesterol 69.1 Cholesterol/HDL Ratio 2.60 Result Diagram: 05/15/17 0936 Assessment and Plan Problem List: (1) Unspecified psychosis ICD Code: F29 - Unspecified psychosis not due to a substance or known physiological condition Assessment and Plan Altered mental status Admitted under Walton act for disorganized thinking and inability to care for self Risperidone adjusted Autoimmune conditions Patient claims history of lupus, fibromyalgia, and Lyme disease We will get basic markers with basic blood work (ALEIDA, sed rate) Treat based on findings Temporomandibular joint arthritis Patient has an unusual posturing of her jaw while speaking at our first visit, problem seemed to subside by our second visit 3 hours later Ibuprofen 600 mg 3 times daily History of narcotic use Patient states that she is off all narcotics Patient states that she is managing her issues of pain with medical marijuana We will monitor for signs of withdrawal DVT prophylaxis Encourage ambulation Terrence Huynh MD May 15, 2017 13:53
[2017-05-15 18:00] VITALS: BP 113/62; PULSE 80; RESP 16; TEMP 98.4; O2SAT 100
[2017-05-16] MEDS: clonazePAM 0.5 MG TAB PO SCH ×3 (05:50→21:11)
[2017-05-16] MEDS: IBUPROFEN 600 MG TAB PO SCH ×3 (05:50→20:11)
[2017-05-16 06:00] VITALS: BP 124/63; PULSE 81; RESP 17; TEMP 98.1; O2SAT 99
[2017-05-16 08:05] LABS: AUTOMATED NEUTROPHIL # 3.7 TH/MM3 (1.8-7.7); BASOPHIL % 0.2 % (0.0-2.0); EOSINOPHIL % 0.1 % (0.0-4.0); HEMATOCRIT 32.5 % (35.0-46.0); HEMOGLOBIN 10.9 GM/DL (11.6-15.3); LYMPHOCYTE # 1.3 TH/MM3 (1.0-4.8); MEAN CELL VOLUME 94.8 FL (80.0-100.0); MEAN CORPUSCULAR HEMOGLOBIN 31.9 PG (27.0-34.0); MEAN CORPUSCULAR HGB CONC 33.7 % (32.0-36.0); MEAN PLATELET VOLUME 10.1 FL (7.0-11.0); MONOCYTE # 0.4 TH/MM3 (0-0.9); NEUT % 68.7 % (16.0-70.0); PLATELET COUNT 179 TH/MM3 (150-450); RED BLOOD COUNT 3.42 MIL/MM3 (4.00-5.30); WHITE BLOOD COUNT 5.4 TH/MM3 (4.0-11.0)
[2017-05-16 08:21] LABS: BICARBONATE 23.3 MEQ/L (21.0-32.0); CALCIUM 8.7 MG/DL (8.5-10.1); CREATININE 0.52 MG/DL (0.50-1.00)
[2017-05-16] MEDS: NICOTINE 21 MG/24 HR PATCH T-DERMAL SCH (09:00)
[2017-05-16] MEDS: REMOVE OLD PATCH T-DERMAL SCH (09:00)
[2017-05-16 09:40] LABS: WESTERGREN SEDIMENTATION RATE 8 mm/hr (0-30)
[2017-05-16] MEDS: risperiDONE 0.5 MG TAB PO SCH ×2 (09:42→21:11)
[2017-05-16] MEDS: SULFAMETHOXAZOLE-TRIMETHOPRIM DS 800-160 MG TAB PO SCH ×2 (09:42→20:12)
--- NOTE | 2017-05-16 10:42 | HHI.PR ---
Subjective Remarks Patient states she has had some significant improvement to her TMJ pain following 3 doses of Motrin. She complains of left knee pain related to bruising. Objective Vitals Vital Signs Date Time Temp Pulse Resp B/P (MAP) Pulse Ox O2 Delivery O2 Flow Rate FiO2 05/16/17 06:00 98.1 81 17 124/63 (83) 99 05/15/17 18:00 98.4 80 16 113/62 (79) 100 I/O 05/15/17 05/15/17 05/15/17 05/16/17 05/16/17 05/16/17 07:00 15:00 23:00 07:00 15:00 23:00 Intake Total 600 ml 960 ml 720 ml 480 ml 240 ml Balance 600 ml 960 ml 720 ml 480 ml 240 ml Intake Oral 600 ml 960 ml 720 ml 480 ml 240 ml # Voids 2 1 1 # Bowel Movements 0 Result Diagram: 05/16/17 0740 05/16/17 0740 Objective Remarks GENERAL: Well-nourished, well-developed patient. SKIN: Abrasion on bridge of nose, bruising surrounding left kneecap, bruising on right foot MP joint HEAD: Normocephalic. EYES: No scleral icterus. No injection or drainage. NECK: Supple, trachea midline. No JVD or lymphadenopathy. CARDIOVASCULAR: Regular rate and rhythm without murmurs, gallops, or rubs. RESPIRATORY: Breath sounds equal bilaterally. No accessory muscle use. GASTROINTESTINAL: Abdomen soft, non-tender, nondistended. EXTREMITIES: No bony tenderness surrounding left knee bruising. No major swelling surrounding right distal foot bruising NEUROLOGICAL: Awake, alert, and oriented x 3. Non-focal. A/P Problem List: (1) Unspecified psychosis ICD Code: F29 - Unspecified psychosis not due to a substance or known physiological condition Assessment and Plan Altered mental status Admitted under Walton act for disorganized thinking and inability to care for self Risperidone adjusted, patient appears stable today Autoimmune conditions Patient claims history of lupus, fibromyalgia, and Lyme disease Basic labs are normal, ESR is normal ALEIDA is pending Temporomandibular joint arthritis Resolved following 3 doses of ibuprofen Continue ibuprofen 600 mg 3 times daily History of narcotic use Patient states that she is off all narcotics Patient states that she is managing her issues of pain with medical marijuana Monitoring for signs of withdrawal DVT prophylaxis Encourage ambulation Discharge planning There are no medical reasons that would keep this patient hospitalized Patient is stable for discharge when cleared by Terrence Carolina MD May 16, 2017 10:41
--- NOTE | 2017-05-16 14:23 | HHI.PYPN ---
Subjective Remarks Patient is here for follow-up, chart reviewed. Discussion nursing staff reported the patient has been calm and cooperative. Patient was found lying in hospital bed noted. In good spirits. Patient states that she is feeling better with start of treatment although he is physically tired. Patient states that she is no longer having the "problem of the speaker in my ear" referring to apparatus use for IV line that had been beeping next to her bed previously. Patient states that her stiffness has improved for her TMJ. Patient reports that today she feels hopeful to celebrate her birthday this coming weekend denying any perceptual disturbances. Review of Systems Except as stated in HPI: all other systems reviewed are Neg Mental Status Examination Appearance: Appropriate Consciousness: Alert Orientation: x4 Motor Activity: Other (hyperactive) Speech: Rapid Language: Adequate Fund of Knowledge: Adequate Attention and Concentration: Inadequate Memory: Unremarkable Mood: Anxious Affect: Irritable, Anxious Thought Process & Associations: Disorganized (Less so today) Thought Content: Preoccupations, Delusional Hallucination Type: None Delusion Type: Paranoid (Less so today) Suicidal Ideation: No Suicidal Plan: No Suicidal Intention: No Homicidal Ideation: No Homicidal Plan: No Homicidal Intention: No Insight: Poor Judgment: Poor Results Labs Labs reviewed Test 05/16/17 07:40 White Blood Count 5.4 TH/MM3 Red Blood Count 3.42 MIL/MM3 Hemoglobin 10.9 GM/DL Hematocrit 32.5 % Mean Corpuscular Volume 94.8 FL Mean Corpuscular Hemoglobin 31.9 PG Mean Corpuscular Hemoglobin Concent 33.7 % Red Cell Distribution Width 13.0 % Platelet Count 179 TH/MM3 Mean Platelet Volume 10.1 FL Neutrophils (%) (Auto) 68.7 % Lymphocytes (%) (Auto) 24.0 % Monocytes (%) (Auto) 7.0 % Eosinophils (%) (Auto) 0.1 % Basophils (%) (Auto) 0.2 % Neutrophils # (Auto) 3.7 TH/MM3 Lymphocytes # (Auto) 1.3 TH/MM3 Monocytes # (Auto) 0.4 TH/MM3 Eosinophils # (Auto) 0.0 TH/MM3 Basophils # (Auto) 0.0 TH/MM3 CBC Comment DIFF FINAL Differential Comment Erythrocyte Sedimentation Rate 8 mm/hr Blood Urea Nitrogen 3 MG/DL Creatinine 0.52 MG/DL Random Glucose 108 MG/DL Calcium Level 8.7 MG/DL Sodium Level 142 MEQ/L Potassium Level 3.1 MEQ/L Chloride Level 109 MEQ/L Carbon Dioxide Level 23.3 MEQ/L Anion Gap 10 MEQ/L Estimat Glomerular Filtration Rate 102 ML/MIN Vitals/IOs Vital Signs Date Time Temp Pulse Resp B/P (MAP) Pulse Ox O2 Delivery O2 Flow Rate FiO2 05/16/17 06:00 98.1 81 17 124/63 (83) 99 Intake and Output 05/16/17 05/16/17 05/17/17 08:00 16:00 00:00 Intake Total 480 ml 480 ml Balance 480 ml 480 ml Assessment & Plan Problem List: (1) Unspecified psychosis ICD Codes: F29 - Unspecified psychosis not due to a substance or known physiological condition Assessment & Plan Patient this time appears to have less disorganization,, with improvement in mood. Patient appears to tolerate current treatment regimen. With patient continued to be followed by primary medical team for chronic medical illnesses. We will continue current treatment. Patient likely for discharge tomorrow from psychiatric service and maintains consistency with improved behavior and no longer endorsing any psychotic symptoms. Continue to monitor mood and behavior. Discharge planning in progress. Justification for Cont. Inpt. At risk for further decompensation if at lower level of care Discharge Planning Patient to return back to her residence once psychiatrically and medically cleared. Yung Kenney MD May 16, 2017 14:23
[2017-05-16 16:17] LABS: RHEUMATOID FACTOR SCREEN NEGATIVE (NEGATIVE)
[2017-05-16 17:50] VITALS: BP 122/66; PULSE 62; RESP 16; TEMP 98; O2SAT 99
[2017-05-17 05:24] VITALS: BP 124/60; PULSE 67; RESP 17; TEMP 98; O2SAT 100
[2017-05-17] MEDS: IBUPROFEN 600 MG TAB PO SCH (05:35)
[2017-05-17] MEDS: clonazePAM 0.5 MG TAB PO SCH (05:35)
[2017-05-17] MEDS: NICOTINE 21 MG/24 HR PATCH T-DERMAL SCH (09:00)
[2017-05-17] MEDS: REMOVE OLD PATCH T-DERMAL SCH (09:00)
[2017-05-17] MEDS ORDERED: CLON.5 PO (11:04)
[2017-05-17] MEDS ORDERED: IBUP-232 PO (11:04)
[2017-05-17] MEDS ORDERED: RISP0.5T25 PO (11:04)
[2017-05-17] MEDS: risperiDONE 0.5 MG TAB PO SCH (11:18)
[2017-05-17] MEDS: SULFAMETHOXAZOLE-TRIMETHOPRIM DS 800-160 MG TAB PO SCH (11:18)
--- NOTE | 2017-05-17 11:54 | HHI.DS ---
Psychiatry Discharge Summary Inpatient Psychiatric care?: Yes Advance Directive: No Reason Not Provided: declined. Mental Health AdvanceDirective: No Health Care Proxy: No Admission Admission Date May 14, 2017 at 15:45 Admission Diagnosis: (1) Unspecified psychosis ICD Code: F29 - Unspecified psychosis not due to a substance or known physiological condition Brief History The patient is a 46 year-old woman, domiciled with her parents in [place], divorce, no kids, with psychiatric history of PTSD, no previous psychiatric hospitalizations, no previous suicidal attempts, medical history of Lyme disease , fibromyalgias, lupus, Mark's disease, migraine, who was brought to the emergency department for altered mental status. Per ED documentation, the patient was noted by her parents to be acting erratically and thrashing about on the floor. She was placed under a Walton act and brought to the emergency department for further evaluation. According to EMS the patient has a history of lupus, Lyme disease, PTSD and chronic pain. The patient is reportedly on fentanyl, Fioricet, Klonopin and Valium. In the emergency department, the patient was agitated and required sedation with Ativan and Haldol. During the time of our interview, the patient will open her eyes to voice however does not answer any questions. Does not follow commands. Had to be medicated with Haldol 5 mg in order to calm her down. On psychiatric evaluation today the patient is found sleeping, but easily arousable. Patient has a very expansive and elevated affect, reports that she has a lot of energy and she feels very happy. Patient says that she was brought here to the hospital "because I had an argument with her mother"but the patient is unable to elaborate about the circumstances and the cause of this argument. The patient says that she has been walking her dog back and forward in multiple locations in the last week. " I have been watching my dog, my dog is my best friend". The patient is very talkative, at times pressured and has to be redirected multiple times throughout the interview. Patient reports to feels full of energy, she says that she wants to go home because she has several activities to finish. Patient reported that she takes all her medications as prescribed. She says that she takes overtime medications, which is unable to remember the names at this moment. She says that she takes Klonopin, Valium and Fioricet scribe by her neurologist for migraine "Iand neurological conditions"patient doesn't remember the dose. She reports the use of prescribed marijuana, denies the use of other drugs and alcohol. Patient denies suicidal and homicidal ideation, she denies visual and auditory hallucinations. The evaluation the patient becomes tangential and disorganized multiple occasions, but she can be easily redirectable. Collateral information from her mother, Racquel Oakes, , who clarifies that she had to call the 911 yesterday because her daughter was presenting at very initial erratic and disorganized behavior. She says that at the beginning she was just confused, but at the end she was yelling, talking to herself, repeating herself over and over and over and she was not even able to recognize her mother. She says that this is the first time that her daughter has this kind of behavior. She says that the patient doesn't have any previous psychiatric problem. She has a lot of medical problems, she takes her medications as prescribed. She confirms that the patient doesn't use illegal drugs, she uses marijuana prescribed by her PCP. She is unable to clarify if the patient is abusing opiates or benzodiazepines, days that the patient takes clonazepam, Valium, Fioricet as prescribed. 05/15/17 -second opinion Patient is a 46-year-old woman, , domiciled with parents, no children, unemployed on SSD, with a past psychiatric history of PTSD, no previous psychiatric admissions, no previous suicide attempts or self-injurious behavior , with a past medical history significant for Lyme's disease, lupus, Mark, fibromyalgia, migraines, TMJ was brought in under Walton act for also mental status, erratic behavior, talking to self and disorganized behavior which patient was admitted to the inpatient psychiatry for further evaluation and management. Patient seen today for second opinion. Patient was found lying in hospital bed to be somewhat disorganized during interview with some perseveration on her dog which did not make much sense but was able to state that she had been eating less, drinking less, and attempting to titrate herself off her medications. Patient states that she had began falling but also mentions that she has had episodes of falling in the past but primarily " worried about everyone and I caring for myself is new". Which have been ongoing for 1 week. Patient states that she had been having poor sleep for the past couple of days and that her mother called 911 after she had collapsed and brought her to the hospital. Patient states that she is feeling "much better" denies any perceptual disturbances or delusions at this time. Denies family psychiatric history, previous psychiatric diagnoses of PTSD, no previous admissions, suicide attempt or self-injurious behavior, patient does not have any outpatient mental health provider. Patient reports preadmitted previous medication trials with Cymbalta. Patient has substance use history of medical marijuana provided to her by her primary care doctor. Patient also reports having access to firearms at home. Tobacco Use In Past 30 Days: No Tobacco Past 30 Days Alcohol Use: Never Hospital Course The patient is a 46 year-old woman, domiciled with her parents in [place], divorce, no kids, with psychiatric history of PTSD, no previous psychiatric hospitalizations, no previous suicidal attempts, medical history of Lyme disease , fibromyalgias, lupus, Mark's disease, migraine, who was brought to the emergency department for altered mental status. Due to psychotic behavior and disorganization, risperidone was started for psychosis which he tolerated well and continued with medical follow up with primary medical team. Patient with continued treatment was noted to have progressive improvement of mood, cessation of auditory and visual hallucinations , and compliant with treatment. Patient was cooperative with staff, had no behavioral dyscontrol, and participated in his care. Upon discharge patient stated that she was feeling good, denied any psychotic symptoms, denied any SI , HI or delusions. Patient agreed to continue medication regimen and outpatient follow up for continuity of care. Patients mother was involved in her care and continued to be supportive of her aftercare treatment plan. I have counseled the patient regarding warning signs for need to return to the psychiatric emergency room as part of a general safety plan. Patient advised to call 911 or go nearest ED in case of emergency. Patient agrees with plan. Results Blood Pressure 124 / 60 Vital Signs Date Time Temp Pulse Resp B/P (MAP) Pulse Ox O2 Delivery O2 Flow Rate FiO2 05/17/17 05:24 98.0 67 17 124/60 (81) 100 Laboratory Tests Test 05/15/17 09:36 05/16/17 07:40 Blood Urea Nitrogen 3 MG/DL (7-18) 3 MG/DL (7-18) Calcium Level 8.4 MG/DL (8.5-10.1) Potassium Level 3.3 MEQ/L (3.5-5.1) 3.1 MEQ/L (3.5-5.1) Chloride Level 112 MEQ/L (98-107) 109 MEQ/L (98-107) HDL Cholesterol 69.1 MG/DL (40.0-60.0) Red Blood Count 3.42 MIL/MM3 (4.00-5.30) Hemoglobin 10.9 GM/DL (11.6-15.3) Hematocrit 32.5 % (35.0-46.0) Random Glucose 108 MG/DL (74-106) Laboratory Results Test 05/15/17 09:36 Cholesterol Level 180 MG/DL (120-200) HDL Cholesterol 69.1 MG/DL (40.0-60.0) Hemoglobin A1c 4.8 % (4.3-6.0) LDL Cholesterol 95 MG/DL (0-99) Triglycerides Level 80 MG/DL (42-150) Summary of Procedures none Imaging Last Impressions Foot X-Ray 05/15/17 0000 Signed Impressions: Service Date/Time: Monday, May 15, 2017 10:13 - CONCLUSION: No definite fracture is identified. As described above, there is a subtle oblique lucency in the fourth digit proximal phalanx. No clear extension to the cortex is seen suggesting against an acute fracture but suggest correlating for pain in this location. Den Ren MD Pending results at discharge: No Medications # of Antipsychotic meds at D/C: 1 Approp Antipsych med options 1 - Minimum of three failed multiple trials of monotherapy. 2 - Documented plan to taper to monotherapy due to previous use of multiple meds OR cross-taper in progress at D/C. 3 - Documentation of augmentation of Clozapine. 4 - Justification other than those listed in allowable values 1-3, document here : Discharge Discharge Date: May 17, 2017 Discharge Diagnosis: (1) Unspecified psychosis ICD Code: F29 - Unspecified psychosis not due to a substance or known physiological condition Pt Condition on Discharge: Stable Discharge Disposition: Discharge Home Discharge Instructions Diet Instructions: As Tolerated, No Restrictions Activities you can perform: Regular-No Restrictions Discharge Time > 30 minutes Mental Status Examination Appearance: Appropriate Consciousness: Alert Orientation: x4 Motor Activity: Other (hyperactive) Speech: Rapid Language: Adequate Fund of Knowledge: Adequate Attention and Concentration: Adequate Memory: Unremarkable Mood: Appropriate Affect: Irritable, Anxious Thought Process & Associations: Intact, Goal directed, Linear Thought Content: Appropriate Hallucination Type: None Delusion Type: None Suicidal Ideation: No Suicidal Plan: No Suicidal Intention: No Homicidal Ideation: No Homicidal Plan: No Homicidal Intention: No Insight: Fair Judgment: Impulsive Discharge/Advance Care Plan Health Problems: (1) Unspecified psychosis Goals to promote your health * To prevent worsening of your condition and complications * To maintain your health at the optimal level Directions to meet your goals Take your medications as prescribed Follow your dietary instruction Follow activity as directed Keep your appointments as scheduled Take your immunizations and boosters as scheduled If your symptoms worsen call your PCP, if no PCP go to Urgent Care Center or Emergency Room For 08/10 questions related to your inpatient stay or results of tests pending at discharge, please contact Dr. Yung Kenney at Smoking is Dangerous to Your Health. Avoid second hand smoking Yung Kenney MD May 17, 2017 11:54
== END 2017-05-17 12:30 | disposition home or self-care (01) | DRG 885 ==
LOC: EDBD 15:45 → H4EA 15:45 → H260 05-16 14:30
PROVIDERS: ADMIT Student in an Organized Health Care Education/Training Program; ATTEND Student in an Organized Health Care Education/Training Program
DX: F29 Unspecified psychosis not due to a substance or known physiological condition (principal); M32.9 Systemic lupus erythematosus, unspecified; F43.10 Post-traumatic stress disorder, unspecified; E06.3 Autoimmune thyroiditis; G43.909 Migraine, unspecified, not intractable, without status migrainosus; G89.29 Other chronic pain; F12.90 Cannabis use, unspecified, uncomplicated; M26.629 Arthralgia of temporomandibular joint, unspecified side
CPT/HCPCS: 73620; 80048; 80061; 83036; 85025; 85652; 86038; 86430